=== PATIENT | female | born 1935 | race Caucasian/White ===

== ENCOUNTER → 2017-10-31 08:45 | Outpatient (CLI) | payer MEDICARE, SELFPAY ==
--- NOTE | 2017-10-31 08:55 | BD_ITS ---
STUDY: DUAL ENERGY X-RAY ABSORPTIOMETRY / DXA REASON FOR EXAM: Female, 82 years old. The patient is postmenopausal. Loss of height. TECHNIQUE: Bone Mineral Density (BMD) measurements of lumbar spine and bilateral hips were obtained. COMPARISON: Comparison is made with prior study dated October 27, 2015. FINDINGS: Lumbar Spine (L1-L4): g/cm2 (0.989) / T-score (-1.5) / Z-score (0.3) Findings are suggestive of osteopenia with a moderate fracture risk. Left Femur Total: g/cm2 (0.684) / T-score (-2.6) / Z-score (-0.5) Left Femoral Neck: g/cm2 (0.600) / T-score (-3.2) / Z-score (-1.0) Right Femur Total: g/cm2 (0.736) / T-score (-2.2) / Z-score (-0.1) Right Femoral Neck: g/cm2 (0.739) / T-score (-2.2) / Z-score (0.0) The T-Scores on the most recent prior examination were: Lumbar Spine (L1-L4): There has been worsening of bone density since the previous examination. Left Femur Total: which represents a worsening of 4.3%. Right Femur Total: which represents an improvement of 5.7%. BD/Dexa Bone Density Study IMPRESSION: The patient is considered osteoporotic as outlined below according to World Don Organization (WHO) criteria with a high fracture risk. There has been worsening of bone density since the previous examination. Reference Information: The T-score is the number of standard deviations above or below the standard which is normal for young adults at their peak bone mineral density. The World Health Organization (WHO) interprets the T-scores as follows: Above -1 Normal bone density Between -1 and -2.5 Osteopenia Equal to / or below -2.5 Osteoporosis As a practical clinical guideline, osteopenia may be graded as follows: Mild -1 through -1.5 Moderate -1.6 through -2.0 Severe -2.1 through -2.4 The Z-score is the number of standard deviations above or below age-matched controls. A Z-score of less than -1.5 would be considered abnormal. References: 1. NIH Osteoporosis and Related Bone Diseases http://www.osteo.org 2. International Society for Clinical Densitometry http://www.iscd.org 3. National Osteoporosis Foundation http://www.nof.org Electronically Signed: Fernando Venegas MD at 13:18 EDT Tel [phone], Service support ,
== END ==
PROVIDERS: Family Provider Nurse Practitioner; PCP Nurse Practitioner; Visit Provider Nurse Practitioner
DX: M81.0 Age-related osteoporosis without current pathological fracture (principal)
CPT/HCPCS: 77080

== ENCOUNTER → 2017-12-14 13:52 | Outpatient (CLI) | payer MEDICARE, SELFPAY ==
--- NOTE | 2017-12-14 13:55 | RAD_ITS ---
STUDY: X-RAY - RIGHT SHOULDER REASON FOR EXAM: Shoulder pain for 4 days, no specific injury. TECHNIQUE: 4 view(s) of the shoulder. COMPARISON: None. FINDINGS: There is osteopenia. Normal glenohumeral articulation. Normal acromioclavicular joint. Normal acromion. Normal humeral head and visualized proximal humerus. There is subtle calcific tendinitis. Normal visualized pulmonary apex. RAD/Shoulder min 2 Views IMPRESSION: Subtle calcific tendinitis. Electronically Signed: George Madrid MD at 14:14 EDT Tel , Service support ,
== END ==
PROVIDERS: Family Provider Nurse Practitioner; PCP Nurse Practitioner; Visit Provider Nurse Practitioner Gerontology
DX: M25.511 Pain in right shoulder (principal)
CPT/HCPCS: 73030

== ENCOUNTER → 2018-02-28 12:44 | Outpatient (CLI) | payer MEDICARE, SELFPAY ==
--- NOTE | 2018-02-28 12:46 | BI_ITS ---
MAMMOGRAPHY - BILATERAL SCREENING REASON FOR EXAM: Female, 82 years old. Routine annual screening examination. PERTINENT HISTORY: Non-contributory. TECHNIQUE: Digital bilateral breast jessica (3D mammographic acquisition) in the CC and MLO projections. 2-D mediolateral oblique (MLO) and craniocaudad (CC) views of both breasts were obtained. CAD: Full Field Digital Mammography with Computer Added Detection was performed. COMPARISON: Comparison is made with prior examination dated February 27, 2017 and October 27, 2015. FINDINGS: Breast Composition: The breasts are heterogeneously dense, which may obscure small masses. There are no dominant masses or suspicious calcifications. There are stable small benign-appearing bilateral axillary lymph nodes. No other significant abnormalities are identified. There has been no significant change since the prior study. BI/SCREENING MAMM (CAD), BILAT IMPRESSION: Stable bilateral screening mammogram. Yearly follow-up mammogram recommended. (A) ASSESSMENT CATEGORY: BIRADS Category 2: Benign. A letter regarding these results will be sent to the patient by the facility within 30 days. Approximately 10% of breast cancers are not detected by mammography. A normal mammogram should not delay biopsy of a clinically suspicious abnormality. [id number] Electronically Signed: Fernando Venegas MD at 15:34 EDT Tel [phone], Service support ,
== END ==
PROVIDERS: Family Provider Nurse Practitioner; PCP Nurse Practitioner; Visit Provider Nurse Practitioner
DX: Z12.31 Encounter for screening mammogram for malignant neoplasm of breast (principal)
CPT/HCPCS: 77063; 77067

== ENCOUNTER → 2018-12-27 12:44 | Outpatient (CLI) | payer MEDICARE, SELFPAY ==
--- NOTE | 2018-12-27 12:49 | ECHOD_ITS ---
Reason For Study: BRADYACARDIA Procedure This was a 2D Doppler, Color Flow transthoracic echocardiogram. The study was technically difficult. Exam performed in department. Left Ventricle Normal size and thickness. The estimated ejection fraction is 65 %. Diastolic function is indeterminate. No regional wall motion abnormalities noted. Right Ventricle Normal RV size. Normal systolic function. Atria The left atrium is mildly enlarged. Normal right atrium. No doppler evidence for ASD. Mitral Valve There is no mitral valve stenosis. Trivial mitral valve insufficiency. Tricuspid Valve There is no tricuspid stenosis. Mild tricuspid valve insufficiency. Pulmonary artery systolic pressure is 35 mmHg. Aortic Valve Trisinus/trileaflet aortic valve. Aortic sclerosis, no stenosis. There is no aortic stenosis. No aortic valve insufficiency. Pulmonic Valve There is no pulmonic valvular stenosis. No pulmonic valve insufficiency identified. Great Vessels Normal aortic root. Pericardium/Pleural No pericardial effusion. MMode/2D Measurements & Calculations LVIDd: 4.0 cm IVSd: 0.82 cm LVOT diam: 1.9 cm LVIDs: 2.5 cm LVPWd: 0.86 cm LVOT area: 2.8 cm2 RVDd: 3.6 cm FS: 37.4 % Ao root diam: 3.5 cm LAV(MOD-bp): 39.5 ml LVAd ap4: 26.8 cm2 LAV(MOD-bp) Indexed: 23.0 ml/m2 EDV(MOD-sp4): 81.8 ml LAV(MOD-sp2): 49.6 ml EDV(sp4-el): 86.4 ml LAV(MOD-sp4): 31.3 ml LVAs ap4: 13.5 cm2 ESV(MOD-sp4): 28.3 ml ESV(sp4-el): 27.8 ml EF(MOD-sp4): 65.3 % EF(sp4-el): 67.8 % SV(MOD-sp4): 53.4 ml SV(sp4-el): 58.5 ml LA A4 area: 13.7 cm2 LA dimension(2D): 4.2 cm RA A4 area: 11.9 cm2 Time Measurements MV dec time: 0.48 sec Doppler Measurements & Calculations MV E max flavio: 60.0 cm/sec Lat Peak E' Flavio: 4.1 cm/sec Med Peak E' Flavio: 4.5 cm/sec MV A max flavio: 111.2 cm/sec E/E' lat: 14.5 E/E' med: 13.3 MV E/A: 0.54 MV V2 max: 129.5 cm/sec Ao V2 max: 165.5 cm/sec LV V1 max: 122.7 cm/sec MV max P.7 mmHg Ao max P.0 mmHg LV V1 max P.0 mmHg MV V2 mean: 61.9 cm/sec Ao V2 mean: 108.3 cm/sec LV V1 mean P.4 mmHg MV mean P.0 mmHg Ao mean P.4 mmHg LV V1 mean: 86.5 cm/sec MV V2 VTI: 38.3 cm Ao V2 VTI: 31.6 cm LV V1 VTI: 26.5 cm MVA(VTI): 1.9 cm2 LISBET(I,D): 2.4 cm2 LISBET(V,D): 2.1 cm2 SV(LVOT): 74.5 ml PA V2 max: 83.5 cm/sec TR max flavio: 272.9 cm/sec TR max P.8 mmHg MV P1/2t-pr_phl: 57.2 msec Interpretation Summary The estimated ejection fraction is 65 %. Diastolic function is indeterminate. Mild tricuspid valve insufficiency. Pulmonary artery systolic pressure is 35 mmHg. Aortic sclerosis, no stenosis. Trivial mitral valve insufficiency. Ordering Physician: Beverley Bridges Referring Physician: Beverley Bridges Performed By: Lissy Quinn, FRANCINECS, RVT
== END ==
PROVIDERS: Family Provider Nurse Practitioner; PCP Nurse Practitioner; Referring Provider Nurse Practitioner; Visit Provider Nurse Practitioner
DX: G47.33 Obstructive sleep apnea (adult) (pediatric) (principal); R00.1 Bradycardia, unspecified
CPT/HCPCS: 93225; 93226; 93306

== ENCOUNTER → 2019-04-19 14:15 | Outpatient (CLI) | payer MEDICARE, SELFPAY ==
--- NOTE | 2019-04-19 14:19 | BI_ITS ---
MAMMOGRAPHY - BILATERAL SCREENING REASON FOR EXAM: Female, 83 years old. Routine annual screening examination. PERTINENT HISTORY: Non-contributory. TECHNIQUE: Digital bilateral breast xiomara (3D mammographic acquisition) in the CC and MLO projections. 2-D mediolateral oblique (MLO) and craniocaudad (CC) views of both breasts were obtained. CAD: Full Field Digital Mammography with Computer Added Detection was performed. COMPARISON: Comparison is made with prior examination dated February 28, 2018 and February 27, 2017. FINDINGS: Breast Composition: The breasts are heterogeneously dense, which may obscure small masses. There are no dominant masses or suspicious calcifications. No other significant abnormalities are identified. There has been no significant change since the prior study. BI/SCREEN MAMM (CAD) W/XIOMARA BILAT IMPRESSION: Stable bilateral screening mammogram. Yearly follow-up mammogram recommended. (A) ASSESSMENT CATEGORY: BIRADS Category 1: Negative. A letter regarding these results will be sent to the patient by the facility within 30 days. Approximately 10% of breast cancers are not detected by mammography. A normal mammogram should not delay biopsy of a clinically suspicious abnormality. [id number] Electronically Signed: Fernando Venegas, at 15:45 EST , Service support ,
== END ==
PROVIDERS: Family Provider Nurse Practitioner; PCP Nurse Practitioner; Referring Provider Nurse Practitioner; Visit Provider Nurse Practitioner
DX: Z12.31 Encounter for screening mammogram for malignant neoplasm of breast (principal)
CPT/HCPCS: 77063; 77067

== ENCOUNTER → 2019-11-12 09:45 | Outpatient (CLI) | payer MEDICARE, SELFPAY ==
--- NOTE | 2019-11-12 09:58 | BD_ITS ---
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 COMPARISON: Comparison is made with prior examination dated October 31, 2017. FINDINGS: Lumbar Spine (L1-L4): g/cm2 (1.041) / T-score (-1.3) / Z-score (0.6) Findings are suggestive of osteopenia with a low fracture risk. Left Femur Total: g/cm2 (0.692) / T-score (-2.5) / Z-score (-0.3) Left Femoral Neck: g/cm2 (0.599) / T-score (-3.2) / Z-score (-0.9) Right Femur Total: g/cm2 (0.629) / T-score (-3.0) / Z-score (-0.8) Right Femoral Neck: g/cm2 (0.6-2) / T-score (-3.0) / Z-score (-0.7) The T-Scores on the most recent prior examination were: Lumbar Spine (L1-L4): There has been improvement of bone density since the previous examination. Left Femur Total: which represents an improvement of 1.2%. Right Femur Total: which represents a worsening of 14.5%. BD/Dexa Bone Density Study IMPRESSION: The patient is considered osteoporotic as outlined below according to World Don Organization (WHO) criteria with a high fracture risk. There has been worsening of bone density since the previous examination. Reference Information: The T-score is the number of standard deviations above or below the standard which is normal for young adults at their peak bone mineral density. The World Health Organization (WHO) interprets the T-scores as follows: Above -1 Normal bone density Between -1 and -2.5 Osteopenia Equal to / or below -2.5 Osteoporosis As a practical clinical guideline, osteopenia may be graded as follows: Mild -1 through -1.5 Moderate -1.6 through -2.0 Severe -2.1 through -2.4 The Z-score is the number of standard deviations above or below age-matched controls. A Z-score of less than -1.5 would be considered abnormal. References: 1. NIH Osteoporosis and Related Bone Diseases http://www.osteo.org 2. International Society for Clinical Densitometry http://www.iscd.org 3. National Osteoporosis Foundation http://www.nof.org Electronically Signed: Fernando Vneegas, at 13:14 EDT , Service support ,
== END ==
PROVIDERS: PCP Nurse Practitioner; Referring Provider Nurse Practitioner; Visit Provider Nurse Practitioner
DX: M81.0 Age-related osteoporosis without current pathological fracture (principal)
CPT/HCPCS: 77080

== ENCOUNTER → 2020-04-29 15:34 | Outpatient (CLI) | payer MEDICARE, SELFPAY ==
--- NOTE | 2020-04-29 15:36 | BI_ITS ---
MAMMOGRAPHY - BILATERAL SCREENING REASON FOR EXAM: Female, 84 years old. Routine annual screening examination. PERTINENT HISTORY: Non-contributory. TECHNIQUE: Digital bilateral breast xiomara (3D mammographic acquisition) in the CC and MLO projections. 2-D mediolateral oblique (MLO) and craniocaudad (CC) views of both breasts were obtained. CAD: Full Field Digital Mammography with Computer Added Detection was performed. COMPARISON: Comparison is made with prior study dated 04/19/2019 and 02/28/2018. FINDINGS: Breast Composition: The breasts are heterogeneously dense, which may obscure small masses. There are no dominant masses or suspicious calcifications. Stable small benign-appearing bilateral axillary lymph nodes. No other significant abnormalities are identified. There has been no significant change since the prior study. BI/SCREEN MAMM (CAD) W/XIOMARA BILAT IMPRESSION: Stable bilateral screening mammogram. Yearly follow-up mammogram recommended. (A) ASSESSMENT CATEGORY: BIRADS Category 2: Benign. A letter regarding these results will be sent to the patient by the facility within 30 days. Approximately 10% of breast cancers are not detected by mammography. A normal mammogram should not delay biopsy of a clinically suspicious abnormality. [id number] Electronically Signed: Fernando Venegas, at 8:01 EST , Service support ,
== END ==
PROVIDERS: PCP Nurse Practitioner; Visit Provider Nurse Practitioner
DX: Z12.31 Encounter for screening mammogram for malignant neoplasm of breast (principal)
CPT/HCPCS: 77063; 77067

== ENCOUNTER 2020-07-03 09:06 | Outpatient (RCR) | payer MEDICARE, SELFPAY | END 2020-11-17 23:59 | LOC: IMMUN 09:06 | PROVIDERS: PCP Nurse Practitioner; Visit Provider Family Medicine | DX: Z23 Encounter for immunization (principal) | CPT/HCPCS: 0011A; 0012A; 91301 ==

== ENCOUNTER 2021-06-22 08:32 | Outpatient (CLI) | payer MEDICARE, SELFPAY ==
--- NOTE | 2021-06-22 08:39 | BI_ITS ---
MAMMOGRAPHY - BILATERAL SCREENING REASON FOR EXAM: Female, 85 years old. Routine annual screening examination. PERTINENT HISTORY: Non-contributory. TECHNIQUE: Digital bilateral breast xiomara (3D mammographic acquisition) in the CC and MLO projections. 2-D mediolateral oblique (MLO) and craniocaudad (CC) views of both breasts were obtained. CAD: Full Field Digital Mammography with Computer Added Detection was performed. COMPARISON: Comparison is made with prior study dated 04/29/2020 and 04/19/2019. FINDINGS: Breast Composition: The breasts are heterogeneously dense, which may obscure small masses. There are no dominant masses or suspicious calcifications. Stable small benign-appearing bilateral axillary lymph nodes. No other significant abnormalities are identified. There has been no significant change since the prior study. BI/SCRN MAMM (CAD)W/XIOMARA BILAT IMPRESSION: Stable bilateral screening mammogram. Yearly follow-up mammogram recommended. (A) ASSESSMENT CATEGORY: BIRADS Category 2: Benign. A letter regarding these results will be sent to the patient by the facility within 30 days. Approximately 10% of breast cancers are not detected by mammography. A normal mammogram should not delay biopsy of a clinically suspicious abnormality. [id number] Electronically Signed: Fernando Venegas MD at 9:54 EST , Service support ,
== END 2021-06-22 23:59 | disposition short-term general hospital (02) ==
PROVIDERS: PCP Nurse Practitioner; Visit Provider Nurse Practitioner
DX: Z12.31 Encounter for screening mammogram for malignant neoplasm of breast (principal)
CPT/HCPCS: 77063; 77067

== ENCOUNTER → 2021-12-23 | Outpatient (CLI) | payer MEDICARE, SELFPAY ==
--- NOTE | 2021-12-23 09:30 | BD_ITS ---
STUDY: DUAL ENERGY X-RAY ABSORPTIOMETRY / DXA REASON FOR EXAM: Female, 86 years old. 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 Patient is postmenopausal. TECHNIQUE: Bone Mineral Density (BMD) measurements of lumbar spine and bilateral hips were obtained. COMPARISON: Comparison is made with prior examination dated 11/12/2019. FINDINGS: Lumbar Spine (L1-L4): g/cm2 (0.859) / T-score (-1.7) / Z-score (1.2) Findings are suggestive of osteopenia with a moderate fracture risk. Left Femur Total: g/cm2 (0.551) / T-score (-3.2) / Z-score (-0.9) Left Femoral Neck: g/cm2 (0.477) / T-score (-3.4) / Z-score (-0.8) Right Femur Total: g/cm2 (0.551) / T-score (-3.2) / Z-score (-0.9) Right Femoral Neck: g/cm2 (0.477) / T-score (-3.4) / Z-score (-0.8) The T-Scores on the most recent prior examination were: Lumbar Spine (L1-L4): There has been worsening of bone density since the previous examination. Left Femur Total: which represents a worsening of 13.1%. Right Femur Total: which represents a worsening of 13.1%. BD/Dexa Bone Density Study IMPRESSION: The patient is considered osteoporotic as outlined below according to World Don Organization (WHO) criteria with a high fracture risk. There has been worsening of bone density since the previous examination. Reference Information: The T-score is the number of standard deviations above or below the standard which is normal for young adults at their peak bone mineral density. The World Health Organization (WHO) interprets the T-scores as follows: Above -1 Normal bone density Between -1 and -2.5 Osteopenia Equal to / or below -2.5 Osteoporosis As a practical clinical guideline, osteopenia may be graded as follows: Mild -1 through -1.5 Moderate -1.6 through -2.0 Severe -2.1 through -2.4 The Z-score is the number of standard deviations above or below age-matched controls. A Z-score of less than -1.5 would be considered abnormal. References: 1. NIH Osteoporosis and Related Bone Diseases www osteo.org 2. International Society for Clinical Densitometry www iscd.org 3. National Osteoporosis Foundation www nof.org Electronically Signed: Fernando Venegas MD at 10:35 EDT ,
== END | disposition home or self-care (01) ==
PROVIDERS: PCP Nurse Practitioner Family; Visit Provider Nurse Practitioner Family
DX: M81.0 Age-related osteoporosis without current pathological fracture (principal); Z78.0 Asymptomatic menopausal state
CPT/HCPCS: 77080

== ENCOUNTER → 2022-01-20 | Outpatient (CLI) | payer MEDICARE, SELFPAY | END | disposition home or self-care (01) | PROVIDERS: PCP Nurse Practitioner Family; Visit Provider Nurse Practitioner Family | DX: R00.1 Bradycardia, unspecified (principal); R42 Dizziness and giddiness | CPT/HCPCS: 93225; 93226 ==

== ENCOUNTER 2022-01-24 14:03 | Observation (INO) | payer MEDICARE, SELFPAY ==
[2022-01-24] VITALS (11 sets, daily range): BP systolic 131–203; BP diastolic 71–100; PULSE 54–73; RESP 12–17; TEMP 36.3–36.7; O2SAT 93–98; BMI 23.5; BMI 23.4; BMI 23.1
--- NOTE | 2022-01-24 14:31 | EKG12_ITS ---
Test Reason : dizziness Blood Pressure : / mmHG Vent. Rate : 055 BPM Atrial Rate : 055 BPM P-R Int : 146 ms QRS Dur : 082 ms QT Int : 454 ms P-R-T Axes : 041 -35 010 degrees QTc Int : 434 ms Sinus bradycardia Left axis deviation Minimal voltage criteria for LVH, may be normal variant ( R in aVL ) Possible Anterior infarct , age undetermined Abnormal ECG Confirmed by FRANCHESKA DE DIOS, ESTEBAN ([id number]), editor city MATHEW VU ([id number]) on 01/26/2022 9:42:40 AM Referred By: Lashae Confirmed By:ESTEBAN PRITCHARD MD
[2022-01-24 14:53] LABS: Absolute Lymphocyte Count 0.65 X10^3/uL (0.83-4.51); Absolute Neutrophil Count 9.2 X10^3/uL (2.0-7.7); Basophil# 0.04 X10^3/uL; Basophil% 0.4 % (0-1); Eosinophil# 0.02 X10^3/uL; Eosinophils% 0.2 % (0-5); Hematocrit 47.2 % (37-47); Hemoglobin 15.7 g/dL (12.0-15.0); Lymphocyte # 0.65 X10^3/ul (0.83-4.51); Lymphocyte % 6.3 % (19-41); Mean Corp Hgb Conc 33.3 g/dL (32-36); Mean Corpuscular Hgb 31.4 pg (27.0-32.0); Mean Corpuscular Volume 94.4 fL (81-99); Mean Platelet Vol. 10.5 fl (6.2-12.0); Monocyte# 0.42 X10^3/uL; Monocyte% 4.1 % (0-10); NRBC Flagged by Analyzer 0 % (0-5); Neutrophil # 9.16 X10^3/uL (2.7-7.7); Neutrophil % 88.7 % (47-70); Platelet Count 240 K/mm3 (150-450); RBC Distribution Width CV 14.6 % (11.6-14.6); RBC Distribution Width SD 50.9 fl (35.1-43.9); White Blood Count 10.3 K/mm3 (4.4-11.0)
[2022-01-24 15:02] LABS: Anion Gap 8 (5-15); BUN 13 mg/dL (7-18); BUN/Creat Ratio 13.3 RATIO (10-20); Calcium,Total 9.8 mg/dL (8.5-10.1); Chloride 103 mmol/L (98-107); Creatinine, Serum 0.98 mg/dL (0.55-1.02); EST Glomerular Filtration Rate 57 mL/min (>60); Est Glom Filt Rate - Afr Amer 69 mL/min (>60); Estimated Creatinine Clearance 36.24 ml/min; Glucose 131 mg/dL (74-106); Sodium Level 139 mmol/L (136-145)
--- NOTE | 2022-01-24 15:09 | CT_ITS ---
STUDY: CT HEAD STROKE PROTOCOL W/O CONTRAST INJECTION REASON FOR EXAM: Female, 86 years old. Neuro deficit, acute, stroke suspected RADIATION DOSAGE (If Supplied By Facility): CTDIvol = ( ) mGy, DLP = ( ) mGycm TECHNIQUE: Transaxial CT imaging of the brain was performed without administration of intravenous contrast material. Individualized dose optimization techniques were used for this CT. COMPARISON: No relevant priors. FINDINGS: Normal soft tissue structures. Normal calvarium. There is mild cerebral atrophy with widening of the extra-axial spaces and ventricular dilatation. There are minimal areas of decreased attenuation within the white matter tracts of the supratentorial brain, consistent with microvascular disease changes. Normal basal ganglia and thalami. Normal brainstem. Normal cerebellum. There is no intracranial hemorrhage. There are no findings of an acute ischemic infarction. Normal visualized paranasal sinuses. ASPECT score: 10 CT/STROKE Brain/Head without Cont IMPRESSION: Chronic involutional changes of the brain. N.B. : The above Results were Read Back by Roman Zapata MD to Dr. Lashae MD, and understanding confirmed on 01/24/2022 15:39:11 (ET). Electronically Signed: Roman Zapata MD at 15:40 EDT ,
--- NOTE | 2022-01-24 15:10 | EX.ED.DYSGE1 ---
HPI History of Present Illness Chief Complaint: Dizziness Narrative Narrative: Episodes of dizziness that feel like spinning, for 2 or 3 weeks. This is her fourth episode, it occurred today around 4 hours ago, she noticed it after she got up from a sitting position to go to another room in her house. She felt spinning, nauseated, vomited, and she felt like her eyes were bugging out and her vision was changing. Now that she is sitting here she is asymptomatic and her vision is back to normal. She had no visual field loss. She had no headache or acute confusion. No focal neurologic symptoms in her periphery. No recent head injury or fall. No history of vertigo that she knows of. No recent illness. [facility] Medical History (Updated 01/24/22 @ 17:[address] Jeremy Bhardwaj MD) Dementia GERD (gastroesophageal reflux disease) Hyperlipidemia Hypothyroid No acute medical problems Osteoporosis Home Medications alendronate 70 mg tablet 70 mg PO QWEEK 01/24/22 [History Last Taken Unknown] aspirin 81 mg chewable tablet 81 mg PO DAILY 01/24/22 [History Last Taken Unknown] calcium carbonate 600 mg-vitamin D3 5 mcg (200 unit) tablet 1 tab PO BID 01/24/22 [History Last Taken Unknown] cholecalciferol (vitamin D3) 50 mcg (2,000 unit) capsule (Vitamin D3) 100 mcg PO DAILY 01/24/22 [History Last Taken Unknown] donepezil 5 mg tablet 5 mg PO QHS 01/24/22 [History Last Taken Unknown] levothyroxine 88 mcg tablet 88 mcg PO DAILY 01/24/22 [History Last Taken Unknown] omeprazole 20 mg capsule,delayed release 20 mg PO DAILY 01/24/22 [History Last Taken Unknown] simvastatin 40 mg tablet 40 mg PO QHS 01/24/22 [History Last Taken Unknown] Allergy/AdvReac Type Severity Reaction Status Date / Time Penicillins Allergy Hives Verified 01/24/22 15:10 ibuprofen AdvReac Other Verified 01/24/22 15:13 Social History (Updated 01/24/22 @ 17:[address] Jeremy Bhardwaj MD) Smoking Status: Never smoker additional social history: Lives with , currently in process of downsizing/moving to independent living with him. Ambulates independently at baseline. ROS ROS ED Constitutional Constitutional ED: Denies chills or fever(s) Eyes Eyes: Reports change in vision; Denies diplopia ENT ENT ED: Reports as per HPI, vertigo and other Details: Chronically hard of hearing ; Denies ear pain, rhinorrhea, sore throat or tinnitus Cardiovascular Cardiovascular: Denies chest pain, lightheadedness or palpitations Respiratory/Chest Respiratory/Chest: Denies cough or dyspnea Gastrointestinal Gastrointestinal: Reports nausea and vomiting; Denies abdominal pain or diarrhea Genitourinary Genitourinary ED: Denies dysuria or hematuria Musculoskeletal Musculoskeletal: Denies back pain or neck pain Integumentary Denies abscess or rash Neurologic Neurologic: Reports other Details: Confusion, at baseline. ; Denies headache(s), paresthesias or weakness Psychiatric Psychiatric: Denies anxiety or suicidal thoughts EXAM Physical Exam Const Vital Signs: 01/24/22 14:03 01/24/22 14:11 01/24/22 15:05 Temperature 97.4 F L 97.7 F L Temperature Source Temporal Oral Pulse Rate 54 L 54 L Respiratory Rate 16 15 Respiratory Effort Normal Non-Labored Respiratory Pattern Normal Blood Pressure 169/71 H 203/91 H Blood Pressure Mean 103 128 Pulse Ox 98 95 Oxygen Delivery Method Room Air Room Air 01/24/22 15:44 01/24/22 16:08 01/24/22 16:48 Temperature Temperature Source Pulse Rate 56 L 60 Respiratory Rate 13 17 Respiratory Effort Respiratory Pattern Blood Pressure 188/100 H 181/79 H Blood Pressure Mean 129 113 Pulse Ox 93 96 96 Oxygen Delivery Method Room Air Room Air Room Air 01/24/22 16:57 01/24/22 17:17 Temperature Temperature Source Pulse Rate 58 L 68 Respiratory Rate 12 17 Respiratory Effort Respiratory Pattern Blood Pressure 178/72 H 140/77 H Blood Pressure Mean 107 98 Pulse Ox 96 96 Oxygen Delivery Method Room Air Room Air Positive well nourished and well developed General Appearance ED: well developed and NAD HEENT Reports TM's clear and moist mucous membranes normocephalic and atraumatic Tympanic Membrane ED: Yes TM's clear Eyes PERRL and EOMs intact bilaterally Eyes Narrative: Horizontal nystagmus, fast component mostly to the right, including on [place]-Hallpike which reproduces no vertiginous symptoms. No vertical or rotatory nystagmus but she does have horizontal nystagmus when she looks up. Neck full ROM and supple Chest Wall inspection of chest normal and palpation of chest normal Resp normal respiratory effort and clear to auscultation bilaterally Cardio regular rate, regular rhythm and no murmurs GI non-tender and non-distended Auscultation: normoactive bowel sounds Palpation: soft Back/Spine no CVA tenderness General Back: other FROM Extremity normal to inspection General Extremety ED: Negative for edema, pulses abnormal or tenderness General Extremity: Negative for edema or pulses abnormal Neuro CN's II-XII intact bilaterally and no sensory deficits noted Neuro Narrative: Disoriented to time, at baseline per family. Normal [id number]-pwek and qjlz-zj-yxix bilaterally. Negative Ernesto-Hallpike see HEENT exam. NIHSS 2 only because she does not know the date or her age. Otherwise negative nonfocal neurologic exam. Sensorium / Orientation: awake and alert Motor Exam: strength 5/5 throughout Psych mental status grossly normal Skin no rashes or lesions noted and no wounds MDM MDM MDM Narrative Medical decision making narrative: Initial blood pressure extremely high around 200. For this reason she was given hydralazine 10 mg. This brought her down to 169/71 and later 140/77. At rest she has no vertigo symptoms at this time, and she did not develop any while resting here. She is on aspirin 81 mg, she has had several episodes of this, unknown if it is due to blood pressure, or if that is occurring as a result of her symptoms which may or may not be peripheral in nature. History and exam are not sensitive enough at this time to rule this out. Given her age and blood pressure elevation I think she should be admitted for further work-up to evaluate for the possibility of central etiologies. Lab Data Attestation: I reviewed the patient's lab results. Labs: Laboratory Results - last 24 hr 01/24/22 01/24/22 01/24/22 14:33 14:33 16:43 WBC 10.3 RBC 5.00 Hgb 15.7 H Hct 47.2 H MCV 94.4 MCH 31.4 MCHC 33.3 RDW Std Deviation 50.9 H RDW Coeff of [place] 14.6 Plt Count 240 MPV 10.5 Immature Gran % (Auto) 0.300 Neut % (Auto) 88.7 H Lymph % (Auto) 6.3 L [place] % (Auto) 4.1 Eos % (Auto) 0.2 Baso % (Auto) 0.4 Absolute Neuts (auto) 9.2 H Absolute Lymphs (auto) 0.65 L Nucleated RBC % 0 Sodium 139 Potassium 4.0 Chloride 103 Carbon Dioxide 28.0 Anion Gap 8 BUN 13 Creatinine 0.98 Estim Creat Clear Calc 36.24 Est GFR (MDRD) Af Amer 69 Est GFR (MDRD) Non-Af 57 L BUN/Creatinine Ratio 13.3 Glucose 131 H Calcium 9.8 Urine Color Straw Urine Clarity Clear Urine pH 7.0 Ur Specific [place] 1.010 Urine Protein Negative Urine Glucose (UA) Normal Urine Ketones 15 H Urine Occult Blood Negative Urine Nitrite Negative Urine Bilirubin Negative Urine Urobilinogen Normal Ur Leukocyte Esterase 500 H Radiography Diagnostic Testing: Clinical Impression(s) from Imaging Studies Brain CT 01/24/22 15:09 IMPRESSION: Chronic involutional changes of the brain. N.B. : The above Results were Read Back by Roman Zapata MD to Dr. Lashae MD, and understanding confirmed on 01/24/2022 15:39:11 (ET). Electronically Signed: Roman Zapata MD at 15:40 EDT Reading Location ID and State: [facility] / [place] , Service support , ADDENDUM: 01/24/22 1547 IMPRESSION: Chronic involutional changes of the brain. N.B. : The above Results were Read Back by Roman Zapata MD to Dr. Lashae MD, and understanding confirmed on 01/24/2022 15:39:11 (ET). Electronically Signed: Roman Zapata MD at 15:40 EDT , Chest X-Ray 01/24/22 15:16 IMPRESSION: No acute process Electronically Signed: Roman Zapata MD at 15:28 EDT , Rhythm Strip Rhythm Strip: Sinus Rhythm Rate: 55 Ectopy: None EKG Initial EKG: Attestation: I personally reviewed and interpreted this EKG as follows: Interpretation: Sinus Rhythm, No Acute Injury Pattern and LAFB Prior: No Prior Discharge Plan Dx/Rx/DC Orders Clinical Impression: Intermittent vertigo, Accelerated hypertension Disposition Disposition: Acute Care Hospital [facility]
--- NOTE | 2022-01-24 15:16 | RAD_ITS ---
STUDY: X-RAY CHEST REASON FOR EXAM: Female, 86 years old. Neuro deficit, acute, stroke suspected TECHNIQUE: Single AP portable view of the chest. COMPARISON: None. FINDINGS: The lungs are clear and expanded. There is no demonstrated pleural abnormality. Normal size heart. There are calcified mediastinal lymph nodes. Normal visualized pulmonary arteries. There is atherosclerotic calcification of the aortic arch with tortuosity. There are diffuse degenerative changes of the visualized thoracic spine. Normal visualized ribs, clavicles, and shoulders. There is no demonstrated abnormality of the visualized soft tissue structures of the upper abdomen. RAD/Chest 1 View IMPRESSION: No acute process Electronically Signed: Roman Zapata MD at 15:28 EDT ,
[2022-01-24] MEDS: hydrALAZINE 20 MG/ML Vial 10 MG IV (16:50)
[2022-01-24 16:53] LABS: Mucous, Urine 0 SEEN /hpf (<or=2+); Red Blood Cells-Urine 0 SEEN /hpf (0-5)
[2022-01-24 17:04] LABS: Color, Urine Straw (Yellow); Glucose, Dipstick Normal (Normal); Ketone-Dipstick 15 mg/dl (Negative); Leukocyte Esterase-Dipstick 500 /ul (Negative); Nitrite-Dipstick Negative (Negative); Occult Blood-Urine Negative /ul (Negative); Protein-Dipstick Negative (Negative); Urine Bilirubin Dipstick Negative (Negative); Urine Clarity Clear (Clear); Urine Urobilinogen Normal (Normal)
--- NOTE | 2022-01-24 17:48 | NURSING ---
PCU OBS KARLEY VERTIGO, ACCELERATED HTN
--- NOTE | 2022-01-24 17:49 | MRI_ITS ---
EXAM: MR HEAD WITHOUT INTRAVENOUS CONTRAST CLINICAL INDICATION: dizziness TECHNIQUE: Multiplanar and multisequence MR images of the brain were obtained without intravenous contrast. This report was created using [employer] report generation technology. COMPARISON: Ct done earlier. FINDINGS: BRAIN AND EXTRA-AXIAL SPACES: Unremarkable. No intra- or extra-axial hemorrhage. No evidence of acute infarct. No intracranial mass or mass effect. There is preservation of the jackson/white matter interface. Posterior fossa structures are unremarkable. Ventricles are appropriate for age. No hydrocephalus. Basal cisterns are patent. SELLA: Unremarkable. Normal sella turcica, pituitary gland, infundibular stalk, optic chiasm and hypothalamus. AUDITORY SYSTEM: Unremarkable. The internal auditory canals are patent. BONES/JOINTS: Unremarkable. No discrete lytic or blastic abnormalities. SINUSES: Unremarkable as visualized. Clear. MASTOID AIR CELLS: Unremarkable as visualized. Clear. ORBITS: Unremarkable as visualized. Both globes, extraocular muscles, optic nerves and retrobulbar fat appear unremarkable. VASCULATURE: Unremarkable as visualized. Normal flow voids in the major intracranial circulation. MRI/Brain without Contrast IMPRESSION: Negative MRI brain without intravenous contrast. Electronically Signed: Rickie Joshi MD at 19:38 EDT ,
--- NOTE | 2022-01-24 17:49 | CT_ITS ---
We are attempting to reach an attending provider to discuss findings. An addendum with communication details will be sent when the communication is complete. EXAM: CT ANGIOGRAPHY HEAD AND NECK WITH INTRAVENOUS CONTRAST CLINICAL INDICATION: Neuro deficit, acute, stroke suspectedTechnologist Notes VERTIGO, HTN TECHNIQUE: [place]/head and neck CT angiography protocol performed with intravenous contrast. This CT exam was performed using one or more of the following dose reduction techniques: automated exposure control, adjustment of the mA and/or kV according to patient size, and/or use of iterative reconstruction technique. This report was created using [employer] report generation technology. MIP reconstructed images were created and reviewed. CONTRAST: IV 100mL Isovue-370 RADIATION DOSE: CTDIvol = 19.48 mGy, DLP = 688.92 mGy-cm COMPARISON: None. FINDINGS: HEAD: RIGHT ANTERIOR CEREBRAL ARTERY: Unremarkable. No significant stenosis at the visualized segments. Anterior communicating artery is present. No aneurysm. RIGHT MIDDLE CEREBRAL ARTERY: Unremarkable. No significant stenosis at the visualized segments. No aneurysm. RIGHT POSTERIOR CEREBRAL ARTERY: Unremarkable. No occlusion or significant stenosis. No aneurysm. RIGHT INTRACRANIAL INTERNAL CAROTID ARTERY: Unremarkable. No significant stenosis. No dissection or occlusion. RIGHT INTRACRANIAL VERTEBRAL ARTERY: Unremarkable. No significant stenosis. No dissection or occlusion. LEFT ANTERIOR CEREBRAL ARTERY: Unremarkable. No significant stenosis at the visualized segments. No aneurysm. LEFT MIDDLE CEREBRAL ARTERY: Unremarkable. No significant stenosis at the visualized segments. No aneurysm. LEFT POSTERIOR CEREBRAL ARTERY: Unremarkable. No occlusion or significant stenosis. No aneurysm. LEFT INTRACRANIAL INTERNAL CAROTID ARTERY: Unremarkable. No significant stenosis. No dissection or occlusion. LEFT INTRACRANIAL VERTEBRAL ARTERY: Unremarkable. No significant stenosis. No dissection or occlusion. BASILAR ARTERY: Unremarkable. No significant stenosis. No aneurysm. OTHER VASCULATURE: There are no acute findings of the right and left internal carotid artery. ALL ABOVE CRITERIA BY NASCET. There is calcified plaque formation of the right cavernous carotid artery, with a mild stenosis (less than 50%). ALL ABOVE CRITERIA BY NASCET. NECK: RIGHT COMMON CAROTID ARTERY: Unremarkable. No significant stenosis. No dissection or occlusion. RIGHT EXTRACRANIAL INTERNAL CAROTID ARTERY: Unremarkable. No significant stenosis. No dissection or occlusion. RIGHT EXTERNAL CAROTID ARTERY: Unremarkable. No occlusion. RIGHT EXTRACRANIAL VERTEBRAL ARTERY: Unremarkable. No significant stenosis. No dissection or occlusion. LEFT COMMON CAROTID ARTERY: Unremarkable. No significant stenosis. No dissection or occlusion. LEFT EXTRACRANIAL INTERNAL CAROTID ARTERY: Unremarkable. No significant stenosis. No dissection or occlusion. LEFT EXTERNAL CAROTID ARTERY: Unremarkable. No occlusion. LEFT EXTRACRANIAL VERTEBRAL ARTERY: Unremarkable. No significant stenosis. No dissection or occlusion. GREAT VESSELS OF AORTIC ARCH: There is calcified plaque formation of the left cavernous carotid artery, with a mild stenosis (less than 50%). ALL ABOVE CRITERIA BY NASCET. LUNG APICES: Unremarkable as visualized. HEAD and NECK: BONES/JOINTS: There are degenerative findings of the cervical spine. No discrete lytic or blastic abnormalities. SOFT TISSUES: Unremarkable. CAROTID STENOSIS REFERENCE USING NASCET CRITERIA: % ICA stenosis = (1 - narrowest ICA diameter/diameter of distal cervical ICA) x 100. Mild - <50% stenosis. Moderate - 50-69% stenosis. Severe - 70-94% stenosis. Near occlusion - 95-99% stenosis. Occluded - 100% stenosis. CT/STROKE CTA Head AND Neck W/Con IMPRESSION: 1. There are no acute findings of the right and left internal carotid artery. ALL ABOVE CRITERIA BY NASCET. 2. There is calcified plaque formation of the right cavernous carotid artery, with a mild stenosis (less than 50%). ALL ABOVE CRITERIA BY NASCET. 3. There is calcified plaque formation of the left cavernous carotid artery, with a mild stenosis (less than 50%). ALL ABOVE CRITERIA BY NASCET. Electronically Signed: Rickie Joshi MD at 18:29 EDT ,
--- NOTE | 2022-01-24 18:01 | PCM.HP.STD ---
HPI - General General Date of Admission: 01/24/22 Date of Service: 01/24/22 Chief Complaint: Dizziness HPI Narrative LEVY LEWIS, is a 86 F who presented to the emergency department was prehospital on 01/24/2022 with a chief complaint of dizziness. The patient has been suffering from this over the past 3 months and did follow-up with her primary care physician who ordered a Holter monitor which they turned in today. It sounds like this was fairly unpredictable and last for a fairly short period of time however the patient is overall poor historian. She is had 1 fall associated with this but no injury pertaining to the fall. Her episode today started about 4 hours ago when she noticed it after getting up from a sitting position to go to another room in the house. She reported that it felt like the world was spinning and she suffered from associated nausea and had an episode of vomiting. She reported that she felt like her eyes were bugging out and that her vision was blurred for a period of time. At the time of my evaluation her vertigo and visual changes are resolved. She had no visual field deficit. She denies any headaches or confusion. Denies any tingling numbness or weakness. No change in speech or swallowing. As noted she is currently asymptomatic. She was feeling well prior to the episode of vertigo 4 hours previously. Vital signs on presentation emergency department showed a temperature of 97.4, heart rate 54-68, blood pressure 203/91 and down to 140/77 with 10 mg of IV hydralazine x1 dose. Her respiratory rate is 15 and oxygen saturations are 95 to 98% on room air. Her CT C is unremarkable other than a hemoglobin of 15.7. I have no previous hemoglobin to compare. She does have a left shift with an 88.7% neutrophil count. Her BMP is overall unimpressive. Her glucose was 131 however this was nonfat fasting. A troponin was pending on admission. A UA was obtained and shows 500 leuk esterase with no nitrite however differential was pending on admission. Her EKG showed sinus bradycardia with heart rates in the 50s, intervals are normal, few PACs were present, no ST-T wave changes consistent with ischemia. Her chest x-ray showed no acute process. In the emergency department other than imaging obtained she was treated with IV hydralazine for her elevated blood pressure. The patient does not take NSAIDs at baseline. [facility] Medical History Dementia GERD (gastroesophageal reflux disease) Hyperlipidemia Hypothyroid No acute medical problems Osteoporosis Home Medications alendronate 70 mg tablet 70 mg PO QWEEK 01/24/22 [History Last Taken Unknown] aspirin 81 mg chewable tablet 81 mg PO DAILY 01/24/22 [History Last Taken Unknown] calcium carbonate 600 mg-vitamin D3 5 mcg (200 unit) tablet 1 tab PO BID 01/24/22 [History Last Taken Unknown] cholecalciferol (vitamin D3) 50 mcg (2,000 unit) capsule (Vitamin D3) 100 mcg PO DAILY 01/24/22 [History Last Taken Unknown] donepezil 5 mg tablet 5 mg PO QHS 01/24/22 [History Last Taken Unknown] levothyroxine 88 mcg tablet 88 mcg PO DAILY 01/24/22 [History Last Taken Unknown] omeprazole 20 mg capsule,delayed release 20 mg PO DAILY 01/24/22 [History Last Taken Unknown] simvastatin 40 mg tablet 40 mg PO QHS 01/24/22 [History Last Taken Unknown] Allergy/AdvReac Type Severity Reaction Status Date / Time Penicillins Allergy Hives Verified 01/24/22 15:10 ibuprofen AdvReac Other Verified 01/24/22 15:13 Family History (Updated 01/24/22 @ 18:[address] Gayathri Christiansen DO) Other Heart disease Hypertension Surgical History no surgical history no surgical history Social History (Updated 01/24/22 @ 18:[address] Gayathri Christiansen DO) household members: spouse Smoking Status: Never smoker alcohol intake: never substance use type: does not use additional social history: Lives with , currently in process of downsizing/moving to independent living with him. Ambulates independently at baseline. ROS Constitutional Constitutional: Denies anorexia, change in weight, chills, fatigue, fever(s), malaise, night sweats, weakness or other Eyes Eyes: Reports blurry vision and change in vision; Denies change in eye color, discharge from eye(s), double vision, erythema, eye pain, loss of vision or other ENT HEENT: Denies abnormal hearing, dysphagia, ear pain, epistaxis, headache(s), hearing loss, nasal congestion, nasal discharge, post nasal drip, sinus pressure, sore throat or other Cardiovascular Cardiovascular: Denies chest pain, claudication, dyspnea on exertion, edema, lightheadedness, orthopnea, palpitations, paroxysmal nocturnal dyspnea, rapid heart rate, syncope or other Respiratory/Chest Respiratory/Chest: Denies cough, dyspnea, excessive phlegm production, hemoptysis, productive cough, shortness of breath at rest, shortness of breath with exertion, wheezing or other Gastrointestinal Gastrointestinal: Reports nausea and vomiting; Denies abdominal pain, coffee ground emesis, constipation, diarrhea, dyspepsia, hematemesis, hematochezia, loose stools, melena or other Genitourinary Genitourinary: Reports urinary frequency and urinary incontinence; Denies burning urination, difficulty urinating, dysuria, hematuria, nocturia, urinary hesitancy, urinary urgency or other Musculoskeletal Musculoskeletal: Denies arthralgias, back pain, joint pain, joint stiffness, joint swelling, myalgias, neck pain or other Neurologic Neurologic: Reports disequilibrium and dizziness; Denies abnormal gait, abnormal speech, confusion, focal weakness, headache(s), numbness, paresthesias, seizure-like activity, seizures, syncope, tingling, tremor(s) or other Psychiatric Psychiatric: Denies anxiety, depression, homicidal ideation, suicidal ideation or other Endocrine Endocrinology: Denies change in body appearance, cold intolerance, excessive sweating, heat intolerance, polydipsia, polyuria or other Hematologic/Lymphatic Hematologic/Lymphatic: Denies anemia, easy bleeding, easy bruising, lymphadenopathy or other Allergic/Immunologic Allergic/Immunologic: Denies rhinitis, hives, eczemia, asthma or other Vital Signs Vital Signs Vital Signs: 01/24/22 14:03 01/24/22 14:11 01/24/22 15:05 Temperature 97.4 F L 97.7 F L Temperature Source Temporal Oral Pulse Rate 54 L 54 L Respiratory Rate 16 15 Respiratory Effort Normal Non-Labored Respiratory Pattern Normal Blood Pressure 169/71 H 203/91 H Blood Pressure Mean 103 128 Pulse Ox 98 95 Oxygen Delivery Method Room Air Room Air 01/24/22 15:44 01/24/22 16:08 01/24/22 16:48 Temperature Temperature Source Pulse Rate 56 L 60 Respiratory Rate 13 17 Respiratory Effort Respiratory Pattern Blood Pressure 188/100 H 181/79 H Blood Pressure Mean 129 113 Pulse Ox 93 96 96 Oxygen Delivery Method Room Air Room Air Room Air 01/24/22 16:57 08/15/22 17:17 Temperature Temperature Source Pulse Rate 58 L 68 Respiratory Rate 12 17 Respiratory Effort Respiratory Pattern Blood Pressure 178/72 H 140/77 H Blood Pressure Mean 107 98 Pulse Ox 96 96 Oxygen Delivery Method Room Air Room Air Weight Weight: 61.9 kg Body Mass Index (BMI) 23.4 Physical Exam Const alert, oriented x3, no apparent distress, average body habitus, healthy appearing and well nourished Constitutional Narrative: Elderly white female sitting up in bed emergency department, and daughter at bedside, patient appears comfortable nontoxic General Appearance: cooperative HEENT normocephalic, head/scalp atraumatic and moist oral mucous membranes HEENT Narrative: Markedly hard of hearing, dentition is good for age, Mallampati 2, no thrush Eyes PERRL, EOMs intact bilaterally and conjunctivae normal Eyes Narrative: No scleral icterus Neck no lymphadenopathy, supple, no JVD and no carotid bruits Neck Narrative: Trachea midline, no thyroid enlargement Resp normal respiratory effort, no retractions, no use of accessory muscles and clear to auscultation bilaterally Auscultation: Negative for crackles, rales, rhonchi or wheezes Cardio regular rate, regular rhythm, S1 normal heart sound, S2 normal heart sound, no murmurs, no rub, no gallops, no clicks and no JVD Cardio Narrative: Few ectopic beats GI normal to inspection, nondistended, normoactive bowel sounds, soft to palpation, non-tender and non-distended Extremity normal to inspection, full ROM and no clubbing, cyanosis or edema Skin no rashes or lesions noted, no wounds, skin turgor normal, no jaundice, no petechiae and no mottling Neuro oriented x3, CN's II-XII intact bilaterally, moves all extremities and no focal motor deficits Neuro Narrative: Mild generalized weakness Sensorium / Orientation: awake, alert, oriented to person, oriented to place and oriented to time Speech: speech normal Psych affect normal Psych Narrative: Appropriately interactive Results Lab / Micro Data Attestation: I reviewed the patient's lab results. Result Diagrams: 01/24/22 14:33 01/24/22 14:33 Labs: Laboratory Results - last 24 hr 01/24/22 14:33: WBC 10.3, RBC 5.00, Hgb 15.7 H, Hct 47.2 H, MCV 94.4, MCH 31.4, MCHC 33.3, RDW Std Deviation 50.9 H, RDW Coeff of [place] 14.6, Plt Count 240, MPV 10.5, Immature Gran % (Auto) 0.300, Neut % (Auto) 88.7 H, Lymph % (Auto) 6.3 L, Green % (Auto) 4.1, Eos % (Auto) 0.2, Baso % (Auto) 0.4, Absolute Neuts (auto) 9.2 H, Absolute Lymphs (auto) 0.65 L, Nucleated RBC % 0 01/24/22 14:33: Sodium 139, Potassium 4.0, Chloride 103, Carbon Dioxide 28.0, Anion Gap 8, BUN 13, Creatinine 0.98, Estim Creat Clear Calc 36.24, Est GFR (MDRD) Af Amer 69, Est GFR (MDRD) Non-Af 57 L, BUN/Creatinine Ratio 13.3, Glucose 131 H, Calcium 9.8 01/24/22 16:43: Urine Color Straw, Urine Clarity Clear, Urine pH 7.0, Ur Specific [place] 1.010, Urine Protein Negative, Urine Glucose (UA) Normal, Urine Ketones 15 H, Urine Occult Blood Negative, Urine Nitrite Negative, Urine Bilirubin Negative, Urine Urobilinogen Normal, Ur Leukocyte Esterase 500 H Rhythm Strip Rhythm Strip: Sinus Rhythm Rate: 55 Ectopy: None Radiology Impression Brain CT 01/24/22 15:09 IMPRESSION: Chronic involutional changes of the brain. N.B. : The above Results were Read Back by Roman Zapata MD to Dr. Lashae MD, and understanding confirmed on 01/24/2022 15:39:11 (ET). Electronically Signed: Roman Zapata MD at 15:40 EDT Reading Location ID and State: [facility] / [place] , Service support , ADDENDUM: 01/24/22 1547 IMPRESSION: Chronic involutional changes of the brain. N.B. : The above Results were Read Back by Roman Zapata MD to Dr. Lashae MD, and understanding confirmed on 01/24/2022 15:39:11 (ET). Electronically Signed: Roman Zapata MD at 15:40 EDT , Chest X-Ray 01/24/22 15:16 IMPRESSION: No acute process Electronically Signed: Roman Zapata MD at 15:28 EDT , Assessment & Plan Assessment/Plan (1) Intermittent vertigo: (2) Elevated blood pressure reading: (3) Erythrocytosis: PLAN: Plan Vertigo -Sounds like BPPV -Symptoms currently resolved -We will rule out vertebrobasilar insufficiency -MRI -Check echocardiogram -Continue home statin -Continue home aspirin -Check lipids/hemoglobin A1c -Antivert as needed -Antiemetics as needed -Patient was asymptomatic upon my evaluation -PT/OT evaluation Elevated blood pressure reading -Patient's blood pressure was markedly elevated on arriving to the emergency department -Patient does not have elevated blood pressure at baseline and takes no antihypertensive -Was given hydralazine 10 mg with marked improvement prior to admission -We will continue to monitor -CO blood pressure medications available -If blood pressure remains elevated patient may need further medications Erythrocytosis -Unclear if this is just related to some volume depletion versus baseline -No baseline lab data here for comparison -Repeat CBC in a.m. Hypothyroidism -Continue home levothyroxine -Check TSH in a.m. GERD -Continue home omeprazole Hyperlipidemia -Continue home simvastatin -Check lipids Osteoporosis -Restart alendronate on discharge -Continue calcium carbonate -Restart cholecalciferol on discharge Mild dementia -Continue home Aricept -Aricept could be the cause for her lower heart rates as patient does have intermittent bradycardia DVT prophylaxis -Lovenox subcu -SCDs CODE STATUS -full code is verified with the patient on admission Charges/Coding Visit Charges Inpatient E&M: 97019 Init Hosp L3
[2022-01-24 18:08] LABS: Troponin-I HS 7 pg/mL (3.0-54.0)
[2022-01-24 18:38] LABS: Bacteria 2+ /hpf (None Seen); Squamous Epithelial Cells - UA 0-5 SEEN /hpf (5-10); White Blood Cells 5-10 SEEN /hpf (0-5)
--- NOTE | 2022-01-24 19:46 | PCM.HOSP.N ---
Hospitalist Note Her UA differential did finally result and she does have white cells with some bacteria along with her positive leuk esterase noted previously. Urine culture was sent and she was started empirically on ceftriaxone. She did have positive urinary symptoms.
[2022-01-24] MEDS: Donepezil HCl 5 MG Tablet PO (21:23)
[2022-01-24] MEDS: Atorvastatin Calcium 20 MG Tablet PO (21:24)
[2022-01-24] MEDS: Ceftriaxone 1 GM/50 ML BAG IV (21:24)
[2022-01-25 00:31] VITALS: BMI 23.1
[2022-01-25 01:40] VITALS: BP 135/60; PULSE 62; RESP 16; TEMP 37.1; O2SAT 97
[2022-01-25 03:00] VITALS: PULSE 56
[2022-01-25 05:46] LABS: Absolute Lymphocyte Count 1.44 X10^3/uL (0.83-4.51); Absolute Neutrophil Count 6.1 X10^3/uL (2.0-7.7); Basophil# 0.05 X10^3/uL; Basophil% 0.6 % (0-1); Eosinophils% 1.2 % (0-5); Hematocrit 42.9 % (37-47); Hemoglobin 14.2 g/dL (12.0-15.0); Lymphocyte # 1.44 X10^3/ul (0.83-4.51); Lymphocyte % 16.6 % (19-41); Mean Corp Hgb Conc 33.1 g/dL (32-36); Mean Corpuscular Hgb 30.9 pg (27.0-32.0); Mean Corpuscular Volume 93.5 fL (81-99); Mean Platelet Vol. 10.6 fl (6.2-12.0); Monocyte# 0.96 X10^3/uL; Monocyte% 11.1 % (0-10); NRBC Flagged by Analyzer 0 % (0-5); Neutrophil # 6.08 X10^3/uL (2.7-7.7); Neutrophil % 70.3 % (47-70); Platelet Count 246 K/mm3 (150-450); RBC Distribution Width CV 14.5 % (11.6-14.6); RBC Distribution Width SD 50.2 fl (35.1-43.9); Red Blood Count 4.59 M/mm3 (4.2-5.4); White Blood Count 8.7 K/mm3 (4.4-11.0)
[2022-01-25] MEDS: Levothyroxine 88 MCG Tablet PO (05:57)
[2022-01-25 06:25] LABS: AST(SGOT) 16 U/L (15-37); Alanine Aminotransfer ALT/SGPT 14 U/L (13-56); Albumin, Serum 3.1 g/dL (3.2-5.0); Alkaline Phosphatase 68 U/L (45-117); Anion Gap 7 (5-15); BUN 11 mg/dL (7-18); BUN/Creat Ratio 13.7 RATIO (10-20); Calcium,Total 8.5 mg/dL (8.5-10.1); Chloride 107 mmol/L (98-107); Cholesterol 139 mg/dL (200); EST Glomerular Filtration Rate 72 mL/min (>60); Est Glom Filt Rate - Afr Amer 87 mL/min (>60); Glucose 89 mg/dL (74-106); High Density Lipoprotein 61 mg/dL; Magnesium 2.2 mg/dL (1.6-2.6); Phosphorus 3.1 mg/dL (2.5-4.9); Potassium 3.3 mmol/L (3.5-5.1); Protein, Total 6.1 g/dL (6.4-8.2); Sodium Level 140 mmol/L (136-145); Thyroid Stim Hormone (TSH) 1.83 uIU/mL (0.358-3.74); Triglycerides 92 mg/dL; Very Low Density Lipoprotein 18 mg/dL (5-40)
[2022-01-25 07:57] LABS: Hemoglobin A1c 5.6 % (3.8-5.6)
[2022-01-25 08:55] VITALS: BP 133/62; PULSE 56; RESP 16; TEMP 36.8; O2SAT 98
[2022-01-25 09:00] VITALS: PULSE 51
[2022-01-25] MEDS: Aspirin 81 MG TAB.CHEW PO (09:02)
[2022-01-25] MEDS: Calcium Carb/Vitamin D 1 TABLET Tablet PO (09:02)
[2022-01-25] MEDS: 0.9% Saline Lock 10 ML Syringe IV (09:03)
[2022-01-25] MEDS: Potassium Chloride Oral Tablet 20 MEQ 40 MEQ PO (09:03)
[2022-01-25] MEDS: Ceftriaxone 1 GM/50 ML BAG IV (09:03)
[2022-01-25] MEDS: Pantoprazole Sodium 20 MG Tablet PO (09:03)
[2022-01-25] MEDS: Enoxaparin 40 MG/0.4 ML Syringe SC (09:03)
--- NOTE | 2022-01-25 11:01 | NURSING ---
Lety Mcguire, updated on POC
--- NOTE | 2022-01-25 11:27 | DCINST_ITS ---
Discharge Instructions Diet Discharge Diet: Low fat / Low cholesterol Activity Discharge Activity: Return to Normal Activity Dressing / Incision Call your doctor if you observe: Numbness or Tingling and - (Blurry Vision) Follow Up Care Test Results: Test results from this visit will be discussed in further detail at your follow- up appointment, if applicable. Discharge Plan Admission Admit Date/Time: 01/24/22 17:43 Primary Reason for Your Visit: Blurry Vision Attending Provider: Markie Bradley Primary Care Provider: Geovanna Dominguez Consulting Providers: Gayathri Christiansen Discharge Orders/Prescriptions Prescriptions: New cefdinir 300 mg capsule 300 mg PO BID Qty: 6 0RF Continued cholecalciferol (vitamin D3) [Vitamin D3] 50 mcg (2,000 unit) Capsule 100 mcg PO DAILY donepezil 5 mg tablet 5 mg PO QHS Label Comments: take 1 tablet by mouth once daily at bedtime alendronate 70 mg tablet 70 mg PO QWEEK Label Comments: take 1 tablet by mouth every week calcium carbonate-vitamin D3 600 mg-5 mcg (200 unit) Tablet 1 tab PO BID simvastatin 40 mg tablet 40 mg PO QHS Label Comments: take 1 tablet by mouth once daily levothyroxine 88 mcg tablet 88 mcg PO DAILY Label Comments: take 1 tablet by mouth once daily omeprazole 20 mg capsule,delayed release(DR/EC) 20 mg PO DAILY aspirin 81 mg Tablet,Chewable 81 mg PO DAILY Referrals / Follow Up: Geovanna Dominguez, [employer] [Primary Care Provider] - Disposition Disposition (needs filled in before D/C Order can be placed): Home, Self Care
--- NOTE | 2022-01-25 11:30 | PCM.DC.SUM ---
Documented by User: JEWEL Bay 01/25/22 11:36 Providers Date of Admission: 01/24/22 Date of Discharge: 01/25/22 Primary Care Physician: JEWEL Soriano Reason For Visit: DIZZINESS Diagnosis Discharge Diagnosis (1) Intermittent vertigo: Status: Acute Code(s): R42 - Dizziness and giddiness (2) Elevated blood pressure reading: Status: Acute Code(s): R03.0 - Elevated blood-pressure reading, without diagnosis of hypertension (3) Erythrocytosis: Status: Acute Code(s): D75.1 - Secondary polycythemia Medications at Discharge Home Medications alendronate 70 mg tablet 70 mg PO QWEEK 01/24/22 aspirin 81 mg chewable tablet 81 mg PO DAILY 01/24/22 calcium carbonate 600 mg-vitamin D3 5 mcg (200 unit) tablet 1 tab PO BID 01/24/22 cholecalciferol (vitamin D3) 50 mcg (2,000 unit) capsule (Vitamin D3) 100 mcg PO DAILY 01/24/22 donepezil 5 mg tablet 5 mg PO QHS 01/24/22 levothyroxine 88 mcg tablet 88 mcg PO DAILY 01/24/22 omeprazole 20 mg capsule,delayed release 20 mg PO DAILY 01/24/22 simvastatin 40 mg tablet 40 mg PO QHS 01/24/22 cefdinir 300 mg capsule 300 mg PO BID #6 caps 01/25/22 Hospital Course Operations None Procedures None Summary of Care Provided Minutes Spent on Discharge: 35 Hospital Course: Patient is an 86-year-old female who initially presented with dizziness and blurry vision. Patient states that this is since resolved. Patient also reports that this has been intermittent and has been has been going on for some time as she has had a Holter monitor outpatient. Patient was seen by PT and OT who did not recommend further therapy at this time. Patient underwent MRI which was negative for acute findings. Patient's urine is however positive for infection and patient has received 2 doses of ceftriaxone IV. Patient will be discharged home with Omnicef. Patient will be instructed to follow-up with her PCP in 1 to 2 weeks Physical Exam Const alert, oriented x3 and no apparent distress General Appearance: cooperative HEENT normocephalic and head/scalp atraumatic Eyes conjunctivae normal and no scleral icterus Neck no lymphadenopathy and supple General: trachea midline Lymph Lymphatic: no lymphadenopathy noted Resp normal respiratory effort, normal air movement and clear to auscultation bilaterally Cardio regular rate, regular rhythm, S1 normal heart sound, S2 normal heart sound and peripheral pulses 2+ throughout Rate: bradycardia GI normal to inspection, nondistended, normoactive bowel sounds, soft to palpation and non-tender Extremity normal capillary refill and no clubbing, cyanosis or edema Skin Lesions: no lesions Rashes: no rashes Neuro oriented x3, moves all extremities, no focal motor deficits and no sensory deficits noted Psych affect normal Appearance: appropriate Weight / BMI Weight Weight: 135 lb 2.294 oz Body Mass Index (BMI) 23.1 ABG / Lab / Microbiology Data Result Diagrams: 01/25/22 05:20 01/25/22 05:20 Laboratory: Laboratory Results - last 24 hr 01/24/22 14:33: WBC 10.3, RBC 5.00, Hgb 15.7 H, Hct 47.2 H, MCV 94.4, MCH 31.4, MCHC 33.3, RDW Std Deviation 50.9 H, RDW Coeff of Ambrose 14.6, Plt Count 240, MPV 10.5, Immature Gran % (Auto) 0.300, Neut % (Auto) 88.7 H, Lymph % (Auto) 6.3 L, Guthrie % (Auto) 4.1, Eos % (Auto) 0.2, Baso % (Auto) 0.4, Absolute Neuts (auto) 9.2 H, Absolute Lymphs (auto) 0.65 L, Nucleated RBC % 0 01/24/22 14:33: Sodium 139, Potassium 4.0, Chloride 103, Carbon Dioxide 28.0, Anion Gap 8, BUN 13, Creatinine 0.98, Estim Creat Clear Calc 36.24, Est GFR (MDRD) Af Amer 69, Est GFR (MDRD) Non-Af 57 L, BUN/Creatinine Ratio 13.3, Glucose 131 H, Calcium 9.8 01/24/22 14:33: Troponin I High Sens 7 01/24/22 16:43: Urine Color Straw, Urine Clarity Clear, Urine pH 7.0, Ur Specific Eckert 1.010, Urine Protein Negative, Urine Glucose (UA) Normal, Urine Ketones 15 H, Urine Occult Blood Negative, Urine Nitrite Negative, Urine Bilirubin Negative, Urine Urobilinogen Normal, Ur Leukocyte Esterase 500 H, Urine RBC 0 SEEN, Urine WBC 5-10 SEEN, Ur Squamous Epith Cells 0-5 SEEN, Urine Bacteria 2+, Urine Mucus 0 SEEN 01/25/22 05:20: Hemoglobin A1c 5.6 01/25/22 05:20: WBC 8.7, RBC 4.59, Hgb 14.2, Hct 42.9, MCV 93.5, MCH 30.9, MCHC 33.1, RDW Std Deviation 50.2 H, RDW Coeff of Ambrose 14.5, Plt Count 246, MPV 10.6, Immature Gran % (Auto) 0.200, Neut % (Auto) 70.3 H, Lymph % (Auto) 16.6 L, Guthrie % (Auto) 11.1 H, Eos % (Auto) 1.2, Baso % (Auto) 0.6, Absolute Neuts (auto) 6.1, Absolute Lymphs (auto) 1.44, Nucleated RBC % 0 01/25/22 05:20: Sodium 140, Potassium 3.3 L, Chloride 107, Carbon Dioxide 26.0, Anion Gap 7, BUN 11, Creatinine 0.80, Estim Creat Clear Calc 44.40, Est GFR (MDRD) Af Amer 87, Est GFR (MDRD) Non-Af 72, BUN/Creatinine Ratio 13.7, Glucose 89, Calcium 8.5, Phosphorus 3.1, Magnesium 2.2, Total Bilirubin 0.60, AST 16, ALT 14, Alkaline Phosphatase 68, Total Protein 6.1 L, Albumin 3.1 L, Globulin 3.0, Albumin/Globulin Ratio 1.0, Triglycerides 92, Cholesterol 139, LDL Cholesterol 60, VLDL Cholesterol 18, HDL Cholesterol 61, TSH 1.83 Radiography Diagnostic Testing: Radiology Impression Brain CT 01/24/22 15:09 IMPRESSION: Chronic involutional changes of the brain. N.B. : The above Results were Read Back by Roman Zapata MD to Dr. Lashae MD, and understanding confirmed on 01/24/2022 15:39:11 (ET). Electronically Signed: Roman Zapata MD at 15:40 EDT Reading Location ID and State: [facility] / [place] , Service support , ADDENDUM: 01/24/22 1547 IMPRESSION: Chronic involutional changes of the brain. N.B. : The above Results were Read Back by Roman Zapata MD to Dr. Lashae MD, and understanding confirmed on 01/24/2022 15:39:11 (ET). Electronically Signed: Roman Zapata MD at 15:40 EDT , Chest X-Ray 01/24/22 15:16 IMPRESSION: No acute process Electronically Signed: Roman Zapata MD at 15:28 EDT , Brain MRI 01/24/22 17:49 IMPRESSION: Negative MRI brain without intravenous contrast. Electronically Signed: Rickie Joshi MD at 19:38 EDT , Head/Neck CTA 01/24/22 17:49 IMPRESSION: 1. There are no acute findings of the right and left internal carotid artery. ALL ABOVE CRITERIA BY NASCET. 2. There is calcified plaque formation of the right cavernous carotid artery, with a mild stenosis (less than 50%). ALL ABOVE CRITERIA BY NASCET. 3. There is calcified plaque formation of the left cavernous carotid artery, with a mild stenosis (less than 50%). ALL ABOVE CRITERIA BY NASCET. Electronically Signed: Rickie Joshi MD at 18:29 EDT , ADDENDUM: 01/24/22 1846 IMPRESSION: 1. There are no acute findings of the right and left internal carotid artery. ALL ABOVE CRITERIA BY NASCET. 2. There is calcified plaque formation of the right cavernous carotid artery, with a mild stenosis (less than 50%). ALL ABOVE CRITERIA BY NASCET. 3. There is calcified plaque formation of the left cavernous carotid artery, with a mild stenosis (less than 50%). ALL ABOVE CRITERIA BY NASCET. N.B. : The above Results were Read Back by Rickie Joshi MD to MD christopher, and understanding confirmed on 01/24/2022 18:40:03 (ET). Electronically Signed: Rickie Joshi MD at 18:29 EDT , D/C Instructions Discharge Diet: Low fat / Low cholesterol Call your doctor if you observe: Numbness or Tingling and - (Blurry Vision) Meaningful Use Info Meaningful Use Diagnoses (Choose all that apply): None applicable Discharge Plan Admission Admit Date/Time: 01/24/22 17:43 Primary Reason for Your Visit: Blurry Vision Attending Provider: Markie Bradley Primary Care Provider: Geovanna Dominguez Consulting Providers: Gayathri Christiansen Discharge Orders/Prescriptions Prescriptions: New cefdinir 300 mg capsule 300 mg PO BID Qty: 6 0RF Continued cholecalciferol (vitamin D3) [Vitamin D3] 50 mcg (2,000 unit) Capsule 100 mcg PO DAILY donepezil 5 mg tablet 5 mg PO QHS Label Comments: take 1 tablet by mouth once daily at bedtime alendronate 70 mg tablet 70 mg PO QWEEK Label Comments: take 1 tablet by mouth every week calcium carbonate-vitamin D3 600 mg-5 mcg (200 unit) Tablet 1 tab PO BID simvastatin 40 mg tablet 40 mg PO QHS Label Comments: take 1 tablet by mouth once daily levothyroxine 88 mcg tablet 88 mcg PO DAILY Label Comments: take 1 tablet by mouth once daily omeprazole 20 mg capsule,delayed release(DR/EC) 20 mg PO DAILY aspirin 81 mg Tablet,Chewable 81 mg PO DAILY Referrals / Follow Up: Geovanna Dominguez, [employer] [Primary Care Provider] - Disposition Disposition (needs filled in before D/C Order can be placed): Home, Self Care Documented by User: Dr. Markie Bradley DO 01/25/22 18:07 Providers Date of Admission: 01/24/22 Reason For Visit: DIZZINESS Diagnosis Discharge Diagnosis (1) Intermittent vertigo: Status: Acute Code(s): R42 - Dizziness and giddiness (2) Elevated blood pressure reading: Status: Acute Code(s): R03.0 - Elevated blood-pressure reading, without diagnosis of hypertension (3) Erythrocytosis: Status: Acute Code(s): D75.1 - Secondary polycythemia Medications at Discharge Home Medications alendronate 70 mg tablet 70 mg PO QWEEK 01/24/22 aspirin 81 mg chewable tablet 81 mg PO DAILY 01/24/22 calcium carbonate 600 mg-vitamin D3 5 mcg (200 unit) tablet 1 tab PO BID 01/24/22 cholecalciferol (vitamin D3) 50 mcg (2,000 unit) capsule (Vitamin D3) 100 mcg PO DAILY 01/24/22 donepezil 5 mg tablet 5 mg PO QHS 01/24/22 levothyroxine 88 mcg tablet 88 mcg PO DAILY 01/24/22 omeprazole 20 mg capsule,delayed release 20 mg PO DAILY 01/24/22 simvastatin 40 mg tablet 40 mg PO QHS 01/24/22 cefdinir 300 mg capsule 300 mg PO BID #6 caps 01/25/22 ABG / Lab / Microbiology Data Result Diagrams: 01/25/22 05:20 01/25/22 05:20 Discharge Plan Admission Admit Date/Time: 01/24/22 17:43 Primary Reason for Your Visit: Blurry Vision Attending Provider: Markie Bradley Primary Care Provider: Geovanna Dominguez Consulting Providers: Gayathri Christiansen Discharge Orders/Prescriptions Prescriptions: New cefdinir 300 mg capsule 300 mg PO BID Qty: 6 0RF Continued cholecalciferol (vitamin D3) [Vitamin D3] 50 mcg (2,000 unit) Capsule 100 mcg PO DAILY donepezil 5 mg tablet 5 mg PO QHS Label Comments: take 1 tablet by mouth once daily at bedtime alendronate 70 mg tablet 70 mg PO QWEEK Label Comments: take 1 tablet by mouth every week calcium carbonate-vitamin D3 600 mg-5 mcg (200 unit) Tablet 1 tab PO BID simvastatin 40 mg tablet 40 mg PO QHS Label Comments: take 1 tablet by mouth once daily levothyroxine 88 mcg tablet 88 mcg PO DAILY Label Comments: take 1 tablet by mouth once daily omeprazole 20 mg capsule,delayed release(DR/EC) 20 mg PO DAILY aspirin 81 mg Tablet,Chewable 81 mg PO DAILY Referrals / Follow Up: Geovanna Dominguez, [employer] [Primary Care Provider] - Disposition Disposition (needs filled in before D/C Order can be placed): Home, Self Care Charges/Coding Addendum Addendum: Seen and examined today independently of Radhika Sewell, she has no symptoms of lightheadedness or dizziness. Patient had an MRI performed which did not show evidence of ischemic stroke. Patient had an echocardiogram in 2019 which showed no evidence of atrial septal defect. On examination she appeared in good health and spirits, she does not appear to be in any distress. Vital signs as documented. Skin warm and dry and without overt rashes. Neck without JVD, thyroid appears normal, trachea is midline, neck is supple. Lungs clear, normal air movement was noted. Heart exam notable for regular rhythm, normal sounds and absence of murmurs, rubs or gallops. Abdomen unremarkable and without evidence of organomegaly, masses, or abdominal aortic enlargement, bowel sounds are present in all 4 quadrants, no abdominal tenderness was noted. Extremities nonedematous, no cyanosis was noted, no clubbing was noted. Neuro: Cranial nerves II through XII are grossly intact, no focal motor deficits were noted, sensation to light touch and pinprick is intact, motor exam 5/5 throughout. Psych: Patient is alert and oriented x3, she does not appear anxious or depressed, she does not appear agitated. Impression: #1 vertigo-etiology unclear #2 dementia-patient is on Aricept #3 hyperlipidemia-patient is on simvastatin #4 acute cystitis-organism unknown-patient will be discharged on Omnicef I have reviewed Radhika Marcumlissy's discharge summary including her medical assessment and plan of care and with the above additions endorse it. Total clinical time spent by myself addressing the patient's medical issues, reviewing the data, and collaborating with patient's care team: 25 minutes Visit Charges OBSV E&M: 16454 Observation care discharge
--- NOTE | 2022-01-25 11:37 | CASEMGMT ---
Per therapy, no need for any further therapy at discharge. Vibha CUEVA CM
--- NOTE | 2022-01-25 12:24 | PHA.DC.MC ---
Pharmacy Service has performed discharge medication reconciliation and counseling for this patient. 1. CEFDINIR 300MG PO BID X 3 DAYS The patient's discharge medication list was reviewed for discrepancies and discrepancies were resolved. Home Medications alendronate 70 mg tablet 70 mg PO QWEEK 01/24/22 aspirin 81 mg chewable tablet 81 mg PO DAILY 01/24/22 calcium carbonate 600 mg-vitamin D3 5 mcg (200 unit) tablet 1 tab PO BID 01/24/22 cholecalciferol (vitamin D3) 50 mcg (2,000 unit) capsule (Vitamin D3) 100 mcg PO DAILY 01/24/22 donepezil 5 mg tablet 5 mg PO QHS 01/24/22 levothyroxine 88 mcg tablet 88 mcg PO DAILY 01/24/22 omeprazole 20 mg capsule,delayed release 20 mg PO DAILY 01/24/22 simvastatin 40 mg tablet 40 mg PO QHS 01/24/22 cefdinir 300 mg capsule 300 mg PO BID #6 caps 01/25/22 The patient was counseled on the following discharge medications and changes in medications for homegoing were reviewed. The Reason for Use, instructions for use, and potential side effects were reviewed for all new medications. The patient's questions regarding all of their medications were answered. The patient was able to verbally demonstrate an understanding of their discharge medications. The patient demonstrated some understanding but would benefit from further education and reinforcement. Patient counseled by balloon design [email or web address].
[2022-01-25 13:30] VITALS: BP 124/62; PULSE 54; RESP 16; TEMP 36.5; O2SAT 98
[2022-01-25 13:51] VITALS: BMI 23.1
== END 2022-01-25 13:55 | disposition home or self-care (01) ==
LOC: ED 17:38 → PCU 17:55
PROVIDERS: Admitting Provider Internal Medicine; Emergency Provider Emergency Medicine; PCP Nurse Practitioner Family; Visit Provider Internal Medicine
DX: N30.00 Acute cystitis without hematuria (principal); F03.90 Unspecified dementia, unspecified severity, without behavioral disturbance, psychotic disturbance, mood disturbance, and anxiety; R42 Dizziness and giddiness; I65.23 Occlusion and stenosis of bilateral carotid arteries; H53.8 Other visual disturbances; R11.2 Nausea with vomiting, unspecified; D75.1 Secondary polycythemia; R03.0 Elevated blood-pressure reading, without diagnosis of hypertension; R00.1 Bradycardia, unspecified; E78.5 Hyperlipidemia, unspecified; K21.9 Gastro-esophageal reflux disease without esophagitis; E03.9 Hypothyroidism, unspecified; Z79.899 Other long term (current) drug therapy; Z79.82 Long term (current) use of aspirin; Z79.890 Hormone replacement therapy
CPT/HCPCS: 36415; 70450; 70496; 70498; 70551; 71045; 80048; 80053; 80061; 81001; 83036; 83735; 84100; 84443; 84484; 85025; 87086; 93005; 96365; 96366; 96372; 96375; 97161; 97165; 99218; 99285; J7050; Q9967; A4216; G0378

== ENCOUNTER → 2022-09-13 | Outpatient (CLI) | payer MEDICARE, SELFPAY ==
--- NOTE | 2022-09-13 15:18 | MRI_ITS ---
INDICATION: VERTIGO, dizzy spells EXAMINATION: MRI - MR Brain WO/W Contrast TECHNIQUE: Multiplanar and multisequence MR images of the brain were obtained without and with gadolinium. IV Contrast Dosage and Agent: None. COMPARISON: 01/24/2022. FINDINGS: BRAIN AND EXTRA-AXIAL SPACES: No intracranial mass, mass effect, or midline shift. No enhancing lesion. No hemorrhage, hydrocephalus, or acute territorial infarct. Mild foci of T2 signal hyperintensity in the white matter are consistent with microvascular ischemia. Mild cerebral atrophy with widening of the extra-axial spaces and ventricular dilation. Basal cisterns are unremarkable. SELLA: Pituitary gland is normal in height. AUDITORY SYSTEM: Unremarkable. BONES/JOINTS: Unremarkable. SINUSES: Unremarkable as visualized. Clear. MASTOID AIR CELLS: Unremarkable as visualized. Clear. ORBITS: Unremarkable as visualized. VASCULATURE: Normal flow voids in the major intracranial circulation. MRI/Brain W/WO Contrast IMPRESSION: No acute findings. Mild microvascular ischemic changes. Mild atrophy. Electronically Signed: Lana Perez MD at 22:41 EDT Reading Location ID and State: [id number] / Tel , Service support ,
== END | disposition home or self-care (01) ==
LOC: MRI 15:08
PROVIDERS: PCP Nurse Practitioner Family; Referring Provider Nurse Practitioner Family; Visit Provider Nurse Practitioner Family
DX: R42 Dizziness and giddiness (principal)
CPT/HCPCS: 70553; A9575

== ENCOUNTER 2022-10-06 19:36 | Emergency (ER) | payer MEDICARE, SELFPAY ==
[2022-10-06 19:38] VITALS: BP 155/60; PULSE 54; RESP 16; TEMP 36.7; O2SAT 96; BMI 25.9
[2022-10-06] MEDS: Morphine 4 MG/ML Syringe IV ×2 (21:20→23:45)
[2022-10-06] MEDS: Ondansetron 4 MG/2 ML Vial IV (21:20)
--- NOTE | 2022-10-06 21:30 | RAD_ITS ---
INDICATION: Injury/Pain EXAMINATION/TECHNIQUE: X-RAY - RIGHT XR Wrist 3 VIEWS COMPARISON: None. FINDINGS: SOFT TISSUES: There is soft tissue swelling. No radiopaque foreign body. BONES/JOINTS: Fractures are noted at the distal end of the radius and ulna.. Preservation of the joint space.. No sclerotic or destructive changes observed. RAD/Wrist min 3 Views IMPRESSION: Distal radial and ulnar fractures.. Electronically Signed: Landry Velasquez DO at 22:36 EDT Reading Location ID and State: [facility] / [place] Tel [phone], Service support ,
--- NOTE | 2022-10-06 22:07 | EDS_ITS ---
HPI HPI - Fall History of Present Illness Chief Complaint: Fall Informant: patient and family Occured/Mechanism Occurred: Today Mechanism/Context: Yes same level fall and Yes trip Pain/Injury Location: Right wrist Quality of Pain: Sharp Current Severity: Severe Maximum Severity: Severe Worsened by: Movement Relieved by: Rest Associated Symptoms Associated Symptoms: Negative for Parasthesias, Weakness, Loss of function, Inability to ambulate, Loss of consciousness or Amnesia Narrative Narrative: Patient presents after tripping and falling today. Patient was walking out the longterm where her is currently staying for rehab. Patient tripped and fell forward. Patient hit her face on the ground. Patient also landed on her right wrist and bilateral knees. Patient states she has pain in her right wrist mainly. Patient admits to mild pain in both knees and in her face. Patient states her front incisors on the right have been pushed back. Patient is unsure of her last tetanus. Patient does not take any blood thinners. Patient denies any loss of consciousness. Patient denies any paresthesias or weakness. Tetanus Immunization: Unknown [facility] Medical History Dementia Elevated blood pressure reading Erythrocytosis GERD (gastroesophageal reflux disease) Hyperlipidemia Hypothyroid Kidney disease Migraines No acute medical problems Osteoporosis Home Medications alendronate 70 mg tablet 70 mg PO QWEEK 01/24/22 [History Last Taken 01/23/22] calcium carbonate 600 mg-vitamin D3 5 mcg (200 unit) tablet 1 tab PO BID 01/24/22 [History Last Taken 01/24/22 10:00] cholecalciferol (vitamin D3) 50 mcg (2,000 unit) capsule (Vitamin D3) 100 mcg PO DAILY 01/24/22 [History Last Taken 01/23/22 22:00] donepezil 5 mg tablet 5 mg PO QHS 01/24/22 [History Last Taken Unknown] levothyroxine 88 mcg tablet 88 mcg PO DAILY 01/24/22 [History Last Taken 01/24/22 08:00] omeprazole 20 mg capsule,delayed release 20 mg PO DAILY 01/24/22 [History Last Taken 01/24/22 08:00] simvastatin 40 mg tablet 40 mg PO QHS 01/24/22 [History Last Taken 01/23/22 22:00] cefdinir 300 mg capsule 300 mg PO BID #6 caps 01/25/22 [Rx Last Taken Unknown] aspirin 325 mg tablet 325 mg PO DAILY 10/06/22 [History Last Taken Unknown] hydrocodone-acetaminophen 5-325mg 5mg-325mg 1 tab PO Q6H PRN PRN Pain 3 days #10 TABLETS 10/06/22 [Rx Last Taken Unknown] Allergy/AdvReac Type Severity Reaction Status Date / Time Penicillins Allergy Hives Verified 01/24/22 15:10 ibuprofen AdvReac Other Verified 01/24/22 15:13 Family History (Updated 01/24/22 @ 18:[address] Gayathri Christiansen DO) Other Heart disease Hypertension Surgical History Hx of tonsillectomy Social History household members: spouse Smoking Status: Never smoker alcohol intake: never substance use type: does not use additional social history: Lives with , currently in process of downsizing/moving to independent living with him. Ambulates independently at baseline. ROS ROS ED Constitutional Constitutional ED: Denies chills or fever(s) Eyes Eyes: Denies blurry vision or change in vision ENT ENT ED: Denies rhinorrhea or sore throat Cardiovascular Cardiovascular: Denies chest pain or palpitations Respiratory/Chest Respiratory/Chest: Denies cough or dyspnea Gastrointestinal Gastrointestinal: Denies nausea or vomiting Genitourinary Genitourinary ED: Denies dysuria or hematuria Musculoskeletal Musculoskeletal: Denies back pain or neck pain Integumentary Reports Abrasions; Denies abscess or rash Neurologic Neurologic: Denies headache(s) or weakness Allergic/Immunologic Allergic/Immunologic ED: Denies mouth swelling or urticaria EXAM Physical Exam Const Vital Signs: 10/06/22 19:38 10/06/22 19:46 10/06/22 23:22 Temperature 98.1 F 97.8 F Temperature Source Oral Pulse Rate 54 L 59 L Pulse Rate [1 (Initial Baseline)] Respiratory Rate 16 16 Respiratory Rate [1 (Initial Baseline)] Respiratory Effort Normal Respiratory Depth Normal Respiratory Pattern Normal Blood Pressure 155/60 H 138/73 H Blood Pressure [1 (Initial Baseline)] Blood Pressure Mean 91 Pulse Ox 96 97 Oxygen Delivery Method Room Air Room Air Nasal Cannula Oxygen Delivery Method [1 (Initial Baseline)] Oxygen Flow Rate (L/min) 2 Oxygen Flow Rate (L/min) [1 (Initial Baseline)] 10/06/22 23:24 10/06/22 23:30 10/06/22 23:35 Temperature Temperature Source Pulse Rate Pulse Rate [1 (Initial Baseline)] 61 Respiratory Rate Respiratory Rate [1 (Initial Baseline)] 12 Respiratory Effort Respiratory Depth Respiratory Pattern Blood Pressure Blood Pressure [1 (Initial Baseline)] 159/71 H Blood Pressure Mean Pulse Ox Oxygen Delivery Method Nasal Cannula Nasal Cannula Oxygen Delivery Method [1 (Initial Baseline)] Nasal Cannula Oxygen Flow Rate (L/min) 4 Oxygen Flow Rate (L/min) [1 (Initial Baseline)] 2 10/06/22 23:45 Temperature Temperature Source Pulse Rate Pulse Rate [1 (Initial Baseline)] Respiratory Rate Respiratory Rate [1 (Initial Baseline)] Respiratory Effort Respiratory Depth Respiratory Pattern Blood Pressure Blood Pressure [1 (Initial Baseline)] Blood Pressure Mean Pulse Ox Oxygen Delivery Method Room Air Oxygen Delivery Method [1 (Initial Baseline)] Oxygen Flow Rate (L/min) Oxygen Flow Rate (L/min) [1 (Initial Baseline)] Positive well nourished, well developed and obese General Appearance ED: well developed and NAD Nutritional Appearance: obese HEENT HEENT Narrative: There is a superficial abrasion of the right upper lip externally. There is no mucosal laceration noted. Teeth are intact. There is no loosening of the teeth. Oral mucosa is pink and moist. Oropharynx is clear. Airway is patent. Eyes PERRL and EOMs intact bilaterally Resp normal respiratory effort and clear to auscultation bilaterally Cardio regular rate and regular rhythm GI non-tender and non-distended Palpation: soft Extremity Extremity Narrative: There is tenderness, edema, ecchymosis, and deformity over the right distal radius. Range of motion was limited in all motions of the right wrist secondary to pain. There is good range of motion of the right elbow. Radial pulses are equal bilaterally. Sensation was intact to light touch in the radial, median, and ulnar areas. Strength is 5/5 in the radial, median, and ulnar areas. Neuro oriented x3, CN's II-XII intact bilaterally, moves all extremities, no focal motor deficits and no sensory deficits noted Sensorium / Orientation: alert Motor Exam: strength 5/5 throughout Psych mental status grossly normal and thought process normal Skin Skin Narrative: There are superficial abrasions over the knees bilaterally as well as the right upper lip. There is no active bleeding noted. There are no foreign bodies noted. There is no tenderness over the knees. There is good range of motion of the knees. There are no abrasions or lacerations over the right wrist. MDM MDM MDM Narrative Medical decision making narrative: Differential diagnosis includes right wrist fracture, knee abrasions, and facial abrasion. X-rays of the right wrist were obtained to assess for fracture and displacement. Radiography Diagnostic Testing: Clinical Impression(s) from Imaging Studies Wrist X-Ray 10/06/22 21:30 IMPRESSION: Distal radial and ulnar fractures.. Electronically Signed: Landry Velasquez DO at 22:36 EDT Reading Location ID and State: [facility] / [place] Tel [phone], Service support , X-rays of the right wrist were obtained. There are 3 views. On my independent interpretation, there is a comminuted fracture of the right distal radius extending into the radiocarpal joint. There is a questionable ulnar styloid fracture. Radiologist also interpreted the x-rays and did note that there is a ulnar styloid fracture. Repeat x-rays of the right wrist were obtained. There are 3 views. On my independent interpretation, there is improved alignment of the fracture fragments however, there is still some slight dorsal angulation of the distal radius. Radiologist also interpreted the x-rays and agrees. Treatment and Re-Evaluation Narrative: Patient was given morphine and Zofran initially. Patient was advised of her findings. Patient was given a repeat dose of morphine. Patient was advised of the need for sedation to reduce the fracture. Patient was advised of the risks and benefits associated with this. Patient was given the opportunity ask questions. She had no further questions. Patient is agreeable to sedation and reduction. Informed consent was signed. Patient was placed on continuous ca rdiac and pulse oximeter monitors along with CO2 monitor. Timeout was performed at 2325. Patient was given a dose of 60 mg of propofol. Finger traps were used to help with traction. The fracture was reduced. Patient was placed in a well- padded custom made AP splint using 3 inch Ortho-Glass. Patient tolerated the procedure well. Total time of sedation was 8 minutes. Neurovascular exam was i ntact before and after the procedure. Repeat x-rays will be obtained to assess for reduction of the fracture. There is improved alignment of the fracture fragments however there is still some dorsal angulation of the distal radius. Patient was advised of the findings. Patient was advised of the possibility of surgical repair of the wrist fracture. Patient was given a prescription for [place]. Patient was instructed to ice and elevate the right wrist. Patient was instructed to follow-up with her primary care physician in 5 to 7 days. Patient was also given referral for Dr. Perez from orthopedics. Patient and family understood and were agreeable with the plan. All questions were answered. Procedures Upper Extremity Splints Upper Extremity Splint: Orthoglass and - (Short arm AP splint) Splint Fabrication: Fabricated Location: Right Procedural Sedation 1 (Initial Baseline): Consent Signed: Yes Any Problems With Anesthesia: No You/Your family experience fever (hyperthermia) w/anesthesia: No Sedation medication: Propofol Dose: 60 Route: IV Maliampati Score: Class II ASA Classification: II Discharge Plan Triage Chief Complaint: Fall ED Provider: Darren Pierce Dx/Rx/DC Orders Clinical Impression: Abrasion of both knees, Abrasion of face, Closed head injury, Closed fracture of right distal radius and ulna Instructions: ED Fracture, Upper Extremity, ED Head Injury (Adult) Prescriptions: New hydrocodone-acetaminophen [hydrocodone-acetaminophen] 5-325 mg tablet 1 tab PO Q6H PRN PRN (Reason: Pain) 3 Days Qty: 10 0RF No Action cholecalciferol (vitamin D3) [Vitamin D3] 50 mcg (2,000 unit) Capsule 100 mcg PO DAILY donepezil 5 mg tablet 5 mg PO QHS Label Comments: take 1 tablet by mouth once daily at bedtime alendronate 70 mg tablet 70 mg PO QWEEK Label Comments: take 1 tablet by mouth every week calcium carbonate-vitamin D3 600 mg-5 mcg (200 unit) Tablet 1 tab PO BID simvastatin 40 mg tablet 40 mg PO QHS Label Comments: take 1 tablet by mouth once daily levothyroxine 88 mcg tablet 88 mcg PO DAILY Label Comments: take 1 tablet by mouth once daily omeprazole 20 mg capsule,delayed release(DR/EC) 20 mg PO DAILY cefdinir 300 mg capsule 300 mg PO BID Qty: 6 0RF aspirin 325 mg Tablet 325 mg PO DAILY Stand Alone Forms: ED Work / School Excuse Primary Care Provider: Geovanna Dominguez Referrals: Ramone Perez DO [Med Staff - Active Staff] - 3-5 Days Geovanna Dominguez NP-C [Primary Care Provider] - 5-7 Days Disposition Disposition: Home, Self Care
[2022-10-06] MEDS: Propofol 200 MG/20 ML Vial IV BOLUS (23:17)
[2022-10-06 23:22] VITALS: BP 138/73; PULSE 59; RESP 16; TEMP 36.6; O2SAT 97
[2022-10-06 23:24] VITALS: BP 159/71; PULSE 61; RESP 12; O2SAT 97
[2022-10-06 23:30] VITALS: BP 159/71; O2SAT 97
[2022-10-06 23:35] VITALS: O2SAT 98
[2022-10-06 23:45] VITALS: BP 128/60; O2SAT 92
[2022-10-06] MEDS: Diphth,Pertuss(Acell),Tet Vac 0.5 ML Vial IM (23:46)
--- NOTE | 2022-10-07 00:02 | RAD_ITS ---
EXAM: XR RIGHT WRIST, 2 VIEWS CLINICAL INDICATION: Right wrist fracture TECHNIQUE: Frontal and lateral views of the right wrist. This report was created using [employer] report generation technology. COMPARISON: 10/06/2022 FINDINGS: BONES/JOINTS: Reduction and casting of the previously described distal radial and ulnar fractures with improved alignment. Preservation of the joint space. No sclerotic or destructive changes observed. SOFT TISSUES: Soft tissue swelling. No radiopaque foreign body. RAD/Wrist 2 Views IMPRESSION: Reduction and casting of the previously described distal radial and ulnar fractures with improved alignment. Electronically Signed: Rickie Coates MD at 0:38 EDT ,
[2022-10-07 00:38] VITALS: BP 111/55; PULSE 61; RESP 14; RESP 16; O2SAT 92
== END 2022-10-06 23:55 | disposition home or self-care (01) ==
PROVIDERS: Emergency Provider Emergency Medicine; PCP Nurse Practitioner Family; Visit Provider Emergency Medicine
DX: S52.501A Unspecified fracture of the lower end of right radius, initial encounter for closed fracture (principal); F03.90 Unspecified dementia, unspecified severity, without behavioral disturbance, psychotic disturbance, mood disturbance, and anxiety; S52.611A Displaced fracture of right ulna styloid process, initial encounter for closed fracture; S00.511A Abrasion of lip, initial encounter; S80.212A Abrasion, left knee, initial encounter; S80.211A Abrasion, right knee, initial encounter; W18.09XA Striking against other object with subsequent fall, initial encounter; Z23 Encounter for immunization; E78.5 Hyperlipidemia, unspecified; E03.9 Hypothyroidism, unspecified; K21.9 Gastro-esophageal reflux disease without esophagitis; M81.0 Age-related osteoporosis without current pathological fracture; E66.9 Obesity, unspecified; Z79.82 Long term (current) use of aspirin; Z79.890 Hormone replacement therapy; Z79.899 Other long term (current) drug therapy
CPT/HCPCS: 25600; 73100; 73110; 90471; 96374; 96375; 96376; 99285; J7030; A4216; J2405

== ENCOUNTER 2022-10-11 10:58 | Day surgery (SDC) | payer MEDICARE, SELFPAY ==
[2022-10-11] VITALS (15 sets, daily range): BP systolic 122–164; BP diastolic 58–67; PULSE 56–73; RESP 15–18; TEMP 36.8–37.3; O2SAT 89–95; BMI 22.3
[2022-10-11 11:36] LABS: Absolute Lymphocyte Count 1.11 X10^3/uL (0.83-4.51); Absolute Neutrophil Count 10.1 X10^3/uL (2.0-7.7); Basophil# 0.04 X10^3/uL; Basophil% 0.3 % (0-1); Eosinophil# 0.09 X10^3/uL; Eosinophils% 0.7 % (0-5); Hematocrit 40.2 % (37-47); Hemoglobin 13.5 g/dL (12.0-15.0); Lymphocyte # 1.11 X10^3/ul (0.83-4.51); Lymphocyte % 8.8 % (19-41); Mean Corp Hgb Conc 33.6 g/dL (32-36); Mean Corpuscular Hgb 30.8 pg (27.0-32.0); Mean Corpuscular Volume 91.8 fL (81-99); Mean Platelet Vol. 10.7 fl (6.2-12.0); Monocyte# 1.23 X10^3/uL; Monocyte% 9.7 % (0-10); NRBC Flagged by Analyzer 0 % (0-5); Neutrophil # 10.13 X10^3/uL (2.7-7.7); Neutrophil % 80.3 % (47-70); Platelet Count 229 K/mm3 (150-450); RBC Distribution Width CV 13.7 % (11.6-14.6); RBC Distribution Width SD 46.5 fl (35.1-43.9); Red Blood Count 4.38 M/mm3 (4.2-5.4); White Blood Count 12.6 K/mm3 (4.4-11.0)
[2022-10-11] MEDS: Lactated Ringers 1,000 ML 15 ML IV (11:37)
[2022-10-11 11:59] LABS: Anion Gap 8 (5-15); BUN 12 mg/dL (7-18); BUN/Creat Ratio 15.3 RATIO (10-20); Calcium,Total 8.6 mg/dL (8.5-10.1); Chloride 102 mmol/L (98-107); Creatinine, Serum 0.78 mg/dL (0.55-1.02); EST Glomerular Filtration Rate 74 mL/min (>60); Est Glom Filt Rate - Afr Amer 90 mL/min (>60); Estimated Creatinine Clearance 34.87 ml/min; Glucose 101 mg/dL (74-106); Potassium 3.4 mmol/L (3.5-5.1); Sodium Level 137 mmol/L (136-145)
--- NOTE | 2022-10-11 12:04 | HP.PCM_ITS ---
History and Physical Date of Admission: 10/11/22 [facility] [address] [place] [address] OFFICE VISIT Date of Service:? 10/10/22 MR#: [id number] Acct: [id number] Name:? LEVY LEWIS Rep #: [id number] : 1935 ? ? Provider: ?ANTHONY Redd Age/Sex:? 87/F ? ? Location: [facility] Status: Signed Intake Vital Signs ? 10/06/2318:38 10/10/2308:45 Height 5 ft 4 in 5 ft 4 in Weight: ? 130 lb BMI ? 22.3 Intake Visit Reasons:?RIGHT WRIST Is patient in pain?: Yes Pain scale (1-10): 5 Allergies Penicillins Allergy (Verified 10/10/22 11:21) Hivesibuprofen Adverse Reaction (Verified 10/10/22 11:21) Other Medications alendronate 70 mg tablet 70 mg PO QWEEK 01/24/22 [History Confirmed 10/10/22] calcium carbonate 600 mg-vitamin D3 5 mcg (200 unit) tablet 1 tab PO BID 01/24/22 [History Confirmed 10/10/22] cholecalciferol (vitamin D3) 50 mcg (2,000 unit) capsule (Vitamin D3) 125 mcg PO QODAY 01/24/22 [History Confirmed 10/10/22] levothyroxine 88 mcg tablet 88 mcg PO DAILY 01/24/22 [History Confirmed 10/10/22] simvastatin 40 mg tablet 40 mg PO QHS 01/24/22 [History Confirmed 10/10/22] aspirin 325 mg tablet 325 mg PO DAILY 10/06/22 [History Confirmed 10/10/22] hydrocodone-acetaminophen 5-325mg 5mg-325mg 1 tab PO Q6H PRN PRN Pain 3 days #10 TABLETS 10/06/22 [Rx Confirmed 10/10/22] hydrocodone-acetaminophen 5-325mg 5mg-325mg 1 - 2 tab PO Q6H PRN PRN Pain 5 days #40 TABLETS 10/10/22 [Rx Confirmed 10/10/22] PFSH Medical History?(Updated 10/10/22 @ 11:48 by Amadou Carrera) Back pain Dementia Dizziness Elevated blood pressure reading Erythrocytosis Gastric reflux GERD (gastroesophageal reflux disease) History of echocardiogram Hx of cataract Hyperlipidemia Hypothyroid Indwelling urethral catheter present Kidney disease Migraines Non-smoker Osteoporosis Sleep apnea Wears glasses Wears hearing aid Surgical History?(Updated 10/10/22 @ 11:43 by Amadou Carrera) Hx of tonsillectomy Hx of umbilical hernia repair Family History?(Updated 01/24/22 @ 18:[address] Gayathri Christiansen, DO) Other Heart disease Hypertension Social History? household members:? spouse Smoking Status:? Never smoker alcohol intake:? never substance use type:? does not use additional social history:? Lives with , currently in process of downsizing/moving to independent living with him.? Ambulates independently at baseline. HPI RIGHT WRIST Details: Parts of this documentation were recorded by a scribe, this documentation accurately reflects the service provided and the decisions made by me, ANTHONY Faustin 10/10/22 0936. LEVY LEWIS is a 87 year old F NEW patient here today for right wrist fractures, follow up from ED visit. DOI: 10/06/22. PRABHJOT: Fell onto an outstretched hand while ambulating in a parking lot and had immediate pain in multiple areas including her face, right wrist and bilateral knees. Today her main complainants are her right wrist and bilateral ribs. She presents in a fabricated splint made by the ED. However, she has removed the splint twice during the night due to discomfort. She has dementia mildly and her daughter thinks that this contributed to why she removed the splint. Her and her were independent until last week when he had a DC and is currently in at [facility] for rehab. The patient's children are taking turns staying with her at night and most of the daytime. The patient's daughter presents with her today and gives most of the history. The patient is right hand dominant. Denies prior injury or surgery to right upper extremity. Does take 325mg of aspirin daily. Patient denies any numbness or tingling. Patient is taking [place] for pain. Pain today 09/19. She is unable to take NSAIDs due to kidney issues. ROS Const Denies chills and Denies fever(s) Card Denies dyspnea Resp Denies dyspnea GI Denies nausea and Denies vomiting Musc Reports arthralgias, Reports joint swelling, Reports limited range of motion (fracture and splinted), Denies numbness, Denies radiating pain into limb and Denies tingling Skin/Breast Denies rash Neuro No numbness and No tingling Ortho Exam General General: Yes no acute distress Neurologic: Yes alert Psychologic: Yes reasonable and appropriate Right Wrist/Hand Date of injury: 10/06/22 Skin/Wound: Yes CDI, Yes Swelling, Yes Ecchymosis, Yes nail intact (middle finger abnormal) and Yes capillary refill normal Right Wrist: Yes TTP Fracture site; No ROM-Extension 0-60, ROM-Flexion 0-80, ROM-Pronation 0-80 or ROM-Supination 0-90 Sensation: Radial: I, Ulnar: I and Median: I WRIST: Patient presents in a fabricated splint from the ED. Upon removal of the splint she has no evident open wounds. No signs of infection. Positive wrinkle sign. She does have diffuse swelling and ecchymosis throughout the right hand, wrist and forearm. Evident deformity is noted from the fracture site. Unable to make a fist, but does have some flexion of her fingers. Intact sensation to light touch throughout right upper extremity. Normal capillary refill. Palpable radial pulse. Neurologically intact right upper extremity. Abnormality noted of the middle finger on right hand from past injury, almost entire nail is gone and most distal portion of the finger is missing. Left Wrist/Hand Skin/Wound: Yes Swelling and Yes Ecchymosis Head: Normocephalic Atraumatic Chest: symmetrical rise, non-labored breathing, no audible wheeze Abdomen: no guarding, non-rigid Coding Level of Care Code Off vis,new,level 4 Diagnoses Closed fracture of right distal radius and ulna? S52.501A; S52.601A Assessment and Plan Assessment and Plan (1) Closed fracture of right distal radius and ulna: ?Status:?Acute ?Plan: Patient presents to the office today as a follow from the ED regarding right wrist fractures. DOI: 10/06/22. PRABHJOT: ground level fall. Reviewed ED documentation and 3 view x-rays of the right wrist that were taken. Patient is accompanied today by her daughter, Bernice. Case was discussed with Dr. Perez and he examined the patient with myself and discussed treatment options moving forward including conservative versus surgical options. Conservative options include casting which could decrease her function and she was independent with her before this. Discussed the risks and benefits of surgical intervention including but not limited to blood loss, blood clot, infection, continued pain, neurovascular injuries, failure of the procedure, loss of limb, loss of life and post- operative stiffness. The patient and her daughter would like to proceed surgically to maximize her function post-op. She is scheduled for surgery tomorrow 10/11/22 for an ORIF of the right distal radius. She did not sign consent today in the office and will need to sign tomorrow before the procedure. She is aware she should work on decreasing swelling. She should do this by resting, elevating, icing and moving her fingers. She should remain in the splint and it was re-applied before she left. She is aware what to expect post-operatively including restrictions regarding lifting, pushing, pulling and use of the right hand. She is aware she will be in OT post-operatively. She only had 1 pill left of pain medication. A refill was sent in for her today. She is aware she should not take aspirin/NSAIDs tomorrow. X-rays of the ribs were taken and reviewed with the patient and her daughter. She should follow up 2 weeks post-op or sooner if pain, swelling, numbness or other signs or symptoms. The patient and her daughter are in agreement with the plan. Their questions were answered.? Orders: Orders Ribs Álvaro Min 4V w/PA Chest 10/10/22 R07.81 - Pleurodynia ? Medications: Changed From hydrocodone-acetaminophen 5-325 mg 1 TAB? PO Q6H PRN 3 days PRN 10 TABLETS 0RF Pain S52.501A - Unspecified fracture of the lower end of right radius, initial encounter for closed fracture ? To hydrocodone-acetaminophen 5-325 mg 1 - 2 tabs (1 - 2 x 5-325 mg) PO Q6H PRN 5 days PRN 40 TABLETS 0RF Pain S52.501A - Unspecified fracture of the lower end of right radius, initial encounter for closed fracture ? 10/10/22 1607 <Electronically signed by Crystal CRUZ> Date Crystal CRUZ 10/11/22712<Electronically signed by Ramone Perez DO> Cosigner Signature: Date (if applicable) Ramone Perez have examined the patient and the H&P has been reviewed. There are no clinical changes since date of exam.
[2022-10-11] MEDS: Cefazolin 2 GM in 0.9% Normal Saline 100 ML IV (12:23)
--- NOTE | 2022-10-11 12:25 | RAD_ITS ---
STUDY: X-RAY - RIGHT WRIST REASON FOR EXAM: Female, 87 years old. Fracture. TECHNIQUE: 2 intraoperative view(s) of the wrist were obtained. COMPARISON: Right wrist, October 07, 2022 FINDINGS: The 2 provided interoperative images demonstrate plate and screw along the volar aspect of the distal radius. The distal radial fracture is in grossly normal alignment. Cyst stable fracture of the distal ulna. Remainder of the findings are unchanged. RAD/Wrist 2 Views IMPRESSION: Images of internal fixation of a distal radial fracture in the OR. Electronically Signed: Jake Treviño DO at 18:28 EDT ,
[2022-10-11] MEDS: Lidocaine 2% /Epi 1:100 (20ml) 20 ML VIAL (13:30)
--- NOTE | 2022-10-11 13:44 | OP.PCM_ITS ---
Operative Report Date of Procedure: 10/11/22 Preoperative diagnosis: [Right distal radius fracture intra-articular displaced] Postoperative diagnosis: [Same] Procedure: ORIF of the distal radius Implants: Synthes distal radius variable angle locking plate Tourniquet time: 56 minutes Complications: [None] Indication for procedure: 87-year-old female who had a fall who sustained a displaced intra-articular distal radius fracture that was reduced in the ER and splinted. We discussed risks benefits and alternatives of conservative versus surgical intervention. Including the risk of bleeding infection nerve artery tissue damage need for further surgery continued pain postoperative stiffness need for postoperative physical therapy and the expected postoperative course. Procedure: The patient was met in the preoperative holding area the operative extremity was identified by both patient and physician and marked. Patient was met by anesthesia she was brought back to the operating room on a wheeled cart and transferred to the operating table in the supine position anesthesia was started. A well-padded tourniquet was placed on the upper arm of the operative extremity. She was prepped and draped in the usual sterile fashion. A Time out was called to ensure the proper patient procedure and extremity were being contemplated. A 15 blade scalpel was used to make a linear incision over the FCR tendon this was carried down through the skin and subcutaneous tissue. Electrocautery was used to maintain hemostasis. Barbara retractors were used. The FCR tendon sheath was incised and the FCR tendon was mobilized radially. A deep blade scalpel was used to perforate the fascia of the deep FCR tendon sheath and Littler scissors were used to dissect proximally and distally. Blunt dissection was performed a johnathan was placed on the radial and ulnar side of the radius. The pronator quadratus was partially torn from the injury and was released off the radial border of the radius with electrocautery and was elevated with a aguilar elevator. The Hohmann retractors were then placed deep to this muscle. The fracture site was visualized and was freed of hematoma and clot debris with the use of small rongeur and [place]. The fracture was then reduced with the use of a [place] and ulnar deviation and wrist flexion. This was checked under fluoroscopy to ensure that an adequate reduction could be performed. A plate was then positioned over the fracture site and temporarily fixed to the bone with K wires. A cortical screw was then placed in the shaft and sequential locking screws were placed distally this was checked on both AP and lateral projections to ensure screw placement was not penetrating the joint and was in the proper location. Bone drill sleeve was used for the radial styloid screw and a variable angle fashion. The remainder of the cortical screws were placed in the shaft. And the fracture and hardware were visualized in both AP and lateral projections in good alignment and fracture positioning. The wound was thoroughly irrigated. Pronator quadratus was not repairable. A subcutaneous stitch with 3-0 Vicryl was performed followed by 4-0 nylon vertical mattress stitches. Followed by Xeroform 4 x 4 ABD web roll stockinette more web roll and an Jimmie wrap. The tourniquet was let down. There was no complications intraoperatively and the patient was brought back to the PACU in stable condition where she received an axillary block. All counts were correct.
--- NOTE | 2022-10-11 13:45 | DCINST_ITS ---
Discharge Instructions Diet Discharge Diet: No restrictions Dressing / Incision Call your doctor if you observe: Shortness of breath and Chest pain Additional Dressing/Incision Instructions:: DO NOT remove splint. Keep splint on clean and dry do not get wet. encourage full finger range of motion immediately. Absolutely no lifting pushing or pulling any weight with operative extremity. Keep elevated above heart over the next week. Keep cool. Do not stick anything inside of splint. Avoiding sweating will help with itch. If itchy may use [id number] Benadryl. Follow-up as directed call with any concerns. Follow Up Care Please Follow Up With: Ramone Perez DO When: 2 weeks or sooner if patient removes splint accidentally. Test Results: Test results from this visit will be discussed in further detail at your follow- up appointment, if applicable. Discharge Plan Admission Primary Reason for Your Visit: Right distal radius ORIF Attending Provider: Ramone Perez Primary Care Provider: Geovanna Dominguez Discharge Orders/Prescriptions Prescriptions: Continued hydrocodone-acetaminophen 5-325 mg tablet 1 - 2 tab PO Q6H PRN PRN (Reason: Pain) 5 Days Qty: 40 0RF cholecalciferol (vitamin D3) [Vitamin D3] 50 mcg (2,000 unit) Capsule 125 mcg PO QODAY alendronate 70 mg tablet 70 mg PO QWEEK Label Comments: take 1 tablet by mouth every week calcium carbonate-vitamin D3 600 mg-5 mcg (200 unit) Tablet 1 tab PO BID simvastatin 40 mg tablet 40 mg PO QHS Label Comments: take 1 tablet by mouth once daily levothyroxine 88 mcg tablet 88 mcg PO DAILY Label Comments: take 1 tablet by mouth once daily aspirin 325 mg Tablet 325 mg PO DAILY hydrocodone-acetaminophen 5-325 mg tablet 1 tab PO Q6H PRN PRN (Reason: Pain) 3 Days Qty: 10 0RF Referrals / Follow Up: Geovanna Dominguez, CHASIDY-C [Primary Care Provider] - Disposition Discharge Orders: Discharge Patient (Routine); Ordered 10/11/22 Ordered By: Dr. Ramone Perez
[2022-10-11] MEDS: Lactated Ringers 1,000 ML 125 ML IV (13:52)
== END 2022-10-11 17:10 | disposition home or self-care (01) ==
LOC: SDC 11:00 → AC 11:02
PROVIDERS: Anesthesiology; PCP Nurse Practitioner Family; Referring Provider Orthopaedic Surgery; Visit Provider Orthopaedic Surgery
PROC: (CPT 25608; principal; 2022-10-11 12:25)
DX: S52.571A Other intraarticular fracture of lower end of right radius, initial encounter for closed fracture (principal); W19.XXXA Unspecified fall, initial encounter; Y92.481 Parking lot as the place of occurrence of the external cause; E78.5 Hyperlipidemia, unspecified; E03.9 Hypothyroidism, unspecified; K21.9 Gastro-esophageal reflux disease without esophagitis; Z79.82 Long term (current) use of aspirin; Z79.890 Hormone replacement therapy; Z79.899 Other long term (current) drug therapy
CPT/HCPCS: 25608; 64417; 73100; 76000; 80048; 85025; C1713; J7120; J2405

== ENCOUNTER 2022-11-04 10:08 | Emergency (ER) | payer MEDICARE, SELFPAY ==
[2022-11-04 10:08] VITALS: BP 149/68; PULSE 53; RESP 14; TEMP 36.2; O2SAT 96; BMI 23.1
[2022-11-04 10:22] VITALS: BP 182/70; PULSE 58; RESP 18; O2SAT 94
--- NOTE | 2022-11-04 10:41 | EKG12_ITS ---
Test Reason : DIZZINESS Blood Pressure : / mmHG Vent. Rate : 059 BPM Atrial Rate : 059 BPM P-R Int : 150 ms QRS Dur : 080 ms QT Int : 454 ms P-R-T Axes : 040 -26 -03 degrees QTc Int : 449 ms Sinus bradycardia Minimal voltage criteria for LVH, may be normal variant ( R in aVL ) Borderline ECG Confirmed by YADIRA DE DIOS, EFRAÍN ([id number]), editor managing newspaper MATHEW VU ([id number]) on 11/08/2022 10:10:43 AM Referred By: Confirmed By:EFRAÍN MAY MD
--- NOTE | 2022-11-04 10:43 | EX.ED.DYSGE1 ---
HPI History of Present Illness Chief Complaint: Dizziness Narrative Narrative: 87-year-old female who denies significant past medical history presents with dizziness, nausea and vomiting that began suddenly just prior to arrival. She and her states that they were on their way to the title agency, running errands, and when they were driving in the car, she became dizzy, and started vomiting. She states that the dizziness did not last very long and may have essentially resolved, but she has vomited multiple times without any blood in her emesis. She denies any chest pain or shortness of breath, no headache, she does not take blood thinners. While she denies that this is never happened to her previously, her problem list does include intermittent vertigo in review. She remains nauseated. [facility] Medical History Back pain Dementia Dizziness Elevated blood pressure reading Erythrocytosis Gastric reflux GERD (gastroesophageal reflux disease) History of echocardiogram Hx of cataract Hyperlipidemia Hypothyroid Indwelling urethral catheter present Kidney disease Migraines Non-smoker Osteoporosis Sleep apnea Wears glasses Wears hearing aid Home Medications alendronate 70 mg tablet 70 mg PO QWEEK 01/24/22 [History Last Taken 01/23/22] calcium carbonate 600 mg-vitamin D3 5 mcg (200 unit) tablet 1 tab PO BID 01/24/22 [History Last Taken 01/24/22 10:00] cholecalciferol (vitamin D3) 50 mcg (2,000 unit) capsule (Vitamin D3) 125 mcg PO QODAY 01/24/22 [History Last Taken 01/23/22 22:00] levothyroxine 88 mcg tablet 88 mcg PO DAILY 01/24/22 [History Last Taken 01/24/22 08:00] simvastatin 40 mg tablet 40 mg PO QHS 01/24/22 [History Last Taken 01/23/22 22:00] aspirin 325 mg tablet 325 mg PO DAILY 10/06/22 [History Last Taken 10/09/22] hydrocodone-acetaminophen 5-325mg 5mg-325mg 1 tab PO Q6H PRN PRN Pain 3 days #10 TABLETS 10/06/22 [Rx Last Taken Unknown] Allergy/AdvReac Type Severity Reaction Status Date / Time Penicillins Allergy Hives Verified 11/04/22 10:09 ibuprofen AdvReac Other Verified 11/04/22 10:09 Family History Other Heart disease Hypertension Surgical History Hx of tonsillectomy Hx of umbilical hernia repair Social History household members: spouse Smoking Status: Never smoker alcohol intake: never substance use type: does not use additional social history: Lives with , currently in process of downsizing/moving to independent living with him. Ambulates independently at baseline. ROS ROS ED ROS Narrative Constitutional: No fever, no chills. HEENT: No sore throat. No neck pain. No loss of vision. No rhinorrhea. Cardiovascular: No chest pain. No palpitations. No pedal edema. Respiratory: No cough, no shortness of breath. Abdominal: No abdominal pain. Positive nausea and vomiting. Genitourinary: No dysuria. No hematuria. Musculoskeletal: No myalgias. No arthralgias. Neurologic: No headaches. No dizziness. No lightheadedness. Skin: No rash. No change in color. Psychiatric: No depression. No anxiety. EXAM Physical Exam Const Vital Signs: 11/04/22 10:08 11/04/22 10:22 11/04/22 10:23 Temperature 97.1 F L Temperature Source Temporal Pulse Rate 53 L 58 L Respiratory Rate 14 18 Respiratory Effort Normal Non-Labored Respiratory Pattern Normal Blood Pressure 149/68 H 182/70 H Blood Pressure Mean 95 107 Pulse Ox 96 94 Oxygen Delivery Method Room Air Room Air 11/04/22 11:20 11/04/22 13:00 11/04/22 14:18 Temperature Temperature Source Pulse Rate 56 L Respiratory Rate 18 Respiratory Effort Respiratory Pattern Blood Pressure 157/75 H 140/75 H 150/76 H Blood Pressure Mean 102 96 Pulse Ox 95 Oxygen Delivery Method Room Air MDM MDM MDM Narrative Medical decision making narrative: EKG was obtained and interpreted by myself as normal sinus rhythm/sinus bradycardia at 59 bpm without ectopy or acute ST changes. No STEMI. I reviewed her laboratory work and she has normal white count of 10.8, hemoglobin normal at 14.7, hematocrit 47.5, normal platelet count of 261. CMP reveals creatinine of 1.08 with a normal BUN of 18, glucose elevated appropriately at 139 but she has a normal anion gap of 10 I do not feel that she is in a diabetic ketoacidosis. Initial high-sensitivity troponin is 8 with a repeat being 10 for a delta less than 7. I reviewed her prior records and she had been admitted for vertigo in the past. Her daughter is at the bedside who states that they wanted to do an MRI for her dizziness in the past but insurance would not pay for it. Her symptoms had spontaneously resolved at that time. I did obtain a CT of the brain today, and reviewed the imaging and the radiology report which was interpreted as no evidence of an acute process, chronic involutional Manny changes. She did receive ondansetron and her nausea and vomiting has ceased. She is not currently dizzy, hence I do not feel that meclizine is indicated. Chest x-ray interpreted by myself shows no evidence of acute process, no pneumonia. I reviewed the radiology report which confirms my independent interpretation, and they comment on decreasing pleural effusions. At this point in time, as she is asymptomatic and her nausea and vomiting has ceased, I feel she can be discharged safely home with follow-up to her primary care provider. This does not seem like TIA type symptoms which would require admission. Through shared decision-making, patient is comfortable with discharge. She was able to ambulate in the ED without difficulty. Return instructions were reviewed. Disposition is discharged home in stable condition. History & Record Review Discussion w/independent historian: Patient and Significant other Additional record(s) reviewed:: Prior ED visit Lab Data Attestation: I reviewed the patient's lab results. Labs: Laboratory Results - last 24 hr 11/04/22 11/04/22 11/04/22 10:50 10:50 12:55 WBC 10.8 RBC 4.93 Hgb 14.7 Hct 47.5 H MCV 96.3 MCH 29.8 MCHC 30.9 L RDW Std Deviation 52.8 H RDW Coeff of Ambrose 15.0 H Plt Count 261 MPV 11.2 Immature Gran % (Auto) 0.400 Neut % (Auto) 54.2 Lymph % (Auto) 33.8 Villalba % (Auto) 9.2 Eos % (Auto) 1.8 Baso % (Auto) 0.6 Absolute Neuts (auto) 5.9 Absolute Lymphs (auto) 3.66 Nucleated RBC % 0 Sodium 140 Potassium 3.7 Chloride 105 Carbon Dioxide 25.0 Anion Gap 10 BUN 18 Creatinine 1.08 H Estim Creat Clear Calc 32.29 Est GFR (MDRD) Af Amer 62 Est GFR (MDRD) Non-Af 51 L BUN/Creatinine Ratio 16.7 Glucose 139 H Calcium 9.2 Total Bilirubin 0.50 AST 18 ALT 12 L Alkaline Phosphatase 148 H Troponin I High Sens 8 10 Total Protein 6.9 Albumin 3.3 Globulin 3.6 Albumin/Globulin Ratio 0.9 Radiography Diagnostic Testing: Clinical Impression(s) from Imaging Studies Chest X-Ray 11/04/22 10:45 IMPRESSION: Decreased bibasilar atelectasis or inflammation. Decreased right pleural effusion. Electronically Signed: Paula Razo MD at 11:11 EDT , Brain CT 11/04/22 11:09 IMPRESSION: No acute intracranial process identified. Chronic involutional and white matter changes. Electronically Signed: Paula Razo MD at 11:36 EDT , Discharge Plan Triage Chief Complaint: Dizziness ED Provider: Wilber Walker Dx/Rx/DC Orders Clinical Impression: Intermittent vertigo, Nausea and vomiting Instructions: ED Vertigo, Unspecified, ED Vomiting (Adult) Prescriptions: No Action cholecalciferol (vitamin D3) [Vitamin D3] 50 mcg (2,000 unit) Capsule 125 mcg PO QODAY alendronate 70 mg tablet 70 mg PO QWEEK Label Comments: take 1 tablet by mouth every week calcium carbonate-vitamin D3 600 mg-5 mcg (200 unit) Tablet 1 tab PO BID simvastatin 40 mg tablet 40 mg PO QHS Label Comments: take 1 tablet by mouth once daily levothyroxine 88 mcg tablet 88 mcg PO DAILY Label Comments: take 1 tablet by mouth once daily aspirin 325 mg Tablet 325 mg PO DAILY hydrocodone-acetaminophen 5-325 mg tablet 1 tab PO Q6H PRN PRN (Reason: Pain) 3 Days Qty: 10 0RF Primary Care Provider: Geovanna Dominguez Referrals: Geovanna Dominguez, SPEECH AND LANGUAGE ASSISTANT-C [Primary Care Provider] - 3-5 Days Disposition Disposition: Home, Self Care Discharge Date/Time: 11/04/22 14:18
--- NOTE | 2022-11-04 10:45 | RAD_ITS ---
HISTORY: chest pain. TECHNIQUE: XR Chest 1 View. COMPARISON: 10/10/2022. FINDINGS: CARDIOMEDIASTINAL BORDERS: Unchanged with mild cardiomegaly and calcified AP window lymph node. LUNGS: Calcified granuloma in the left lateral lung. Mild atelectasis and scarring. PLEURA: No pleural effusion or pneumothorax seen. OSSEOUS STRUCTURES: Mild scoliosis with degenerative change. RAD/Chest 1 View (Portable) IMPRESSION: Decreased bibasilar atelectasis or inflammation. Decreased right pleural effusion. Electronically Signed: Paula Razo MD at 11:11 EDT ,
[2022-11-04] MEDS: 0.9% Normal Saline 1,000 ML 1000 ML IV (10:50)
[2022-11-04] MEDS: Ondansetron 4 MG/2 ML Vial IV (10:52)
[2022-11-04 10:58] LABS: Absolute Lymphocyte Count 3.66 X10^3/uL (0.83-4.51); Absolute Neutrophil Count 5.9 X10^3/uL (2.0-7.7); Basophil# 0.06 X10^3/uL; Basophil% 0.6 % (0-1); Eosinophils% 1.8 % (0-5); Hematocrit 47.5 % (37-47); Hemoglobin 14.7 g/dL (12.0-15.0); Lymphocyte # 3.66 X10^3/ul (0.83-4.51); Lymphocyte % 33.8 % (19-41); Mean Corp Hgb Conc 30.9 g/dL (32-36); Mean Corpuscular Hgb 29.8 pg (27.0-32.0); Mean Corpuscular Volume 96.3 fL (81-99); Mean Platelet Vol. 11.2 fl (6.2-12.0); Monocyte% 9.2 % (0-10); NRBC Flagged by Analyzer 0 % (0-5); Neutrophil # 5.88 X10^3/uL (2.7-7.7); Neutrophil % 54.2 % (47-70); Platelet Count 261 K/mm3 (150-450); RBC Distribution Width SD 52.8 fl (35.1-43.9); Red Blood Count 4.93 M/mm3 (4.2-5.4); White Blood Count 10.8 K/mm3 (4.4-11.0)
--- NOTE | 2022-11-04 11:09 | CT_ITS ---
HISTORY: dizziness. TECHNIQUE: Multiple axial images were obtained of the head without intravenous contrast. A radiation dose optimization technique was used for this scan. 243 images. COMPARISON: 01/24/2022. FINDINGS: BRAIN PARENCHYMA: Multiple foci and zones of low attenuation in the bilateral cerebral white matter compatible with chronic small vessel ischemic gliosis. No acute intra-axial hemorrhage identified. CSF SPACES: Generalized volume loss. No midline shift or other significant mass effect. No acute extra-axial hemorrhage seen. OTHER: Intact calvarium. No significant air fluid levels in the paranasal sinuses or mastoid air cells. Bilateral lens resections. CT/Brain/Head without Contrast IMPRESSION: No acute intracranial process identified. Chronic involutional and white matter changes. Electronically Signed: Paula Razo MD at 11:36 EDT ,
[2022-11-04 11:20] VITALS: BP 157/75
[2022-11-04 11:20] LABS: ALB/GLOB Ratio 0.9 RATIO (0.9-2.4); AST(SGOT) 18 U/L (15-37); Alanine Aminotransfer ALT/SGPT 12 U/L (13-56); Albumin, Serum 3.3 g/dL (3.2-5.0); Alkaline Phosphatase 148 U/L (45-117); Anion Gap 10 (5-15); BUN 18 mg/dL (7-18); BUN/Creat Ratio 16.7 RATIO (10-20); Calcium,Total 9.2 mg/dL (8.5-10.1); Chloride 105 mmol/L (98-107); Creatinine, Serum 1.08 mg/dL (0.55-1.02); EST Glomerular Filtration Rate 51 mL/min (>60); Est Glom Filt Rate - Afr Amer 62 mL/min (>60); Estimated Creatinine Clearance 32.29 ml/min; Globulin 3.6 g/dL (2.2-4.2); Glucose 139 mg/dL (74-106); Potassium 3.7 mmol/L (3.5-5.1); Protein, Total 6.9 g/dL (6.4-8.2); Sodium Level 140 mmol/L (136-145); Troponin-I HS (w/2H Reflex) 8 pg/mL (3.0-54.0)
[2022-11-04 12:52] LABS: Reflex Troponin-HS? (from REC) Y
[2022-11-04 13:00] VITALS: BP 140/75; PULSE 56; RESP 18; O2SAT 95
[2022-11-04 13:22] LABS: Troponin-I HS 10 pg/mL (3.0-54.0)
[2022-11-04 14:18] VITALS: BP 150/76
== END 2022-11-04 14:18 | disposition home or self-care (01) ==
PROVIDERS: Emergency Provider Emergency Medicine; PCP Nurse Practitioner Family; Visit Provider Emergency Medicine
DX: R42 Dizziness and giddiness (principal); R11.2 Nausea with vomiting, unspecified; E78.5 Hyperlipidemia, unspecified
CPT/HCPCS: 70450; 71045; 80053; 84484; 85025; 93005; 96374; 99284; J7030; A4216; J2405

== ENCOUNTER → 2023-12-27 | Outpatient (CLI) | payer MEDICARE, SELFPAY ==
--- NOTE | 2023-12-27 12:30 | BD_ITS ---
STUDY: DUAL ENERGY X-RAY ABSORPTIOMETRY / DXA REASON FOR EXAM: Female, 88 years old. 733.00OsteoporosisBONE DENSITY REASON FOR EXAM TECHNIQUE: Bone Mineral Density (BMD) measurements of lumbar spine and bilateral hips were obtained. COMPARISON: Comparison is made with prior study dated December 23, 2021 and November 12, 2019. FINDINGS: Lumbar Spine (L1-L4): g/cm2 (0.692) / T-score (-2.6) / Z-score (0.1) Findings are suggestive of osteoporosis with a high fracture risk. Left Femur Total: g/cm2 (0.551) / T-score (-3.2) / Z-score (-0.9) Left Femoral Neck: g/cm2 (0.457) / T-score (-3.5) / Z-score (-1.0) Right Femur Total: g/cm2 (0.320) / T-score (-5.1) / Z-score (-2.8) Right Femoral Neck: g/cm2 (0.279) / T-score (-5.1) / Z-score (-2.6) The T-Scores on the most recent prior examination were: Lumbar Spine (L1-L4): There has been worsening of bone density since the previous examination. Left Femur Total: which represents a worsening of 0.2%. Right Femur Total: which represents a worsening of 39.4%. BD/Dexa Bone Density Study IMPRESSION: The patient is considered osteoporotic as outlined below according to World Don Organization (WHO) criteria with a high fracture risk. There has been worsening of bone density since the previous examination. Reference Information: The T-score is the number of standard deviations above or below the standard which is normal for young adults at their peak bone mineral density. The World Health Organization (WHO) interprets the T-scores as follows: Above -1 Normal bone density Between -1 and -2.5 Osteopenia Equal to / or below -2.5 Osteoporosis As a practical clinical guideline, osteopenia may be graded as follows: Mild -1 through -1.5 Moderate -1.6 through -2.0 Severe -2.1 through -2.4 The Z-score is the number of standard deviations above or below age-matched controls. A Z-score of less than -1.5 would be considered abnormal. References: 1. NIH Osteoporosis and Related Bone Diseases www osteo.org 2. International Society for Clinical Densitometry www iscd.org 3. National Osteoporosis Foundation www nof.org Electronically Signed: Fernando Venegas MD at 8:18 EDT ,
== END | disposition home or self-care (01) ==
LOC: OPBD 12:30
PROVIDERS: PCP Nurse Practitioner Family; Referring Provider Nurse Practitioner Family; Visit Provider Nurse Practitioner Family
DX: M81.0 Age-related osteoporosis without current pathological fracture (principal)
CPT/HCPCS: 77080

== ENCOUNTER 2024-03-07 13:01 | Outpatient (CLI) | payer MEDICARE, SELFPAY ==
[2024-03-07] MEDS: Romosozumab-AQQG 210 MG/2.34 ML Syringe SC (13:12)
[2024-03-07 13:18] VITALS: BP 132/59; PULSE 60; RESP 16; TEMP 36.3; O2SAT 96
== END 2024-03-07 23:59 | disposition home or self-care (01) ==
LOC: MEDOUTP 13:01
PROVIDERS: PCP Nurse Practitioner Family; Referring Provider Nurse Practitioner Family; Visit Provider Nurse Practitioner Family
DX: M81.0 Age-related osteoporosis without current pathological fracture (principal)
CPT/HCPCS: 96372; J3111

== ENCOUNTER 2024-04-02 11:00 | Outpatient (CLI) | payer MEDICARE, SELFPAY ==
[2024-04-02 11:13] VITALS: BP 150/52; PULSE 57; RESP 16; TEMP 36.7; O2SAT 100; BMI 24.0
--- OUTSIDE RECORDS SUMMARY | 2024-04-02 11:15 | XMS RPT_ITS | CCD ---
Author Organization [facility] Inform ion [facility] Care Team Providers Care Learning Solutions Specialist Name Role Phone Ramilaeleanor Beverley Referring Unavailable Geovanna Dominguez CNP Attending Unavailable Geovanna Dominguez CNP Consulting Unavailable Encounters Encounter Date Encounter Type Care Provider Facility Start: 10-17-2022 ambulatory Beverley Bridges Kate [facility] Payers Date Payer Category Payer Medicare [id number] 2020 Unknown [id number] 2016 Unknown [id number] 2014 Medicare [id number] 2013 Medicare [id number] 2010 Unknown [id number] 2004 Unknown [id number] 1936 Unknown [id number] Medicare [id number] B Medicare [id number] Summary Purpose Family History No Family History Records Found Advance Directives No Advanced Directives Records Found Additional Source Comments INFORMATION SOURCE (unrecogn ized section and content) DATE CREATED AUTHOR 10/18/2022 Comprehensive In [facility] FOR RECORDS PERTAINING TO PATIENTS WHO ARE OR HAVE BEEN ENROLLED IN A CHEMICAL DEPENDENCY/SUBSTANCEABUSE PROGRAM, SOME INFORMATION MAY BE OMITTED. This clinical summary was aggregated from multiple sources. Caution should be exercised in using it in the provision of clinical care. This summary normalizes information from multiple sources, and as a consequence, information in this document may materially change the coding, format and clinical context of patient data. In addition, data may be omitted in some cases. CLINICAL DECISIONS SHOULD BE BASED ON THE PRIMARY CLINICAL RECORDS. [facility] [employer] ([email or web address] [facility]. provides no warranty or guarantee of the accuracy or completeness of information in this document.
[2024-04-02] MEDS: Romosozumab-AQQG 210 MG/2.34 ML Syringe SC (11:16)
== END 2024-04-02 23:59 | disposition home or self-care (01) ==
LOC: MEDOUTP 11:00
PROVIDERS: PCP Nurse Practitioner Family; Referring Provider Nurse Practitioner Family; Visit Provider Nurse Practitioner Family
DX: M81.0 Age-related osteoporosis without current pathological fracture (principal)
CPT/HCPCS: 96372; J3111

== ENCOUNTER 2024-05-02 12:25 | Outpatient (CLI) | payer MEDICARE, SELFPAY ==
[2024-05-02 12:34] VITALS: BP 154/49; PULSE 54; RESP 16; TEMP 36.4; O2SAT 98
[2024-05-02] MEDS: Romosozumab-AQQG 210 MG/2.34 ML Syringe SC (12:37)
== END 2024-05-02 23:59 | disposition home or self-care (01) ==
LOC: MEDOUTP 12:25
PROVIDERS: PCP Nurse Practitioner Family; Referring Provider Nurse Practitioner Family; Visit Provider Nurse Practitioner Family
DX: M81.0 Age-related osteoporosis without current pathological fracture (principal)
CPT/HCPCS: 96372; J3111

== ENCOUNTER 2024-05-28 10:22 | Outpatient (CLI) | payer MEDICARE, SELFPAY ==
[2024-05-28 10:29] VITALS: BP 155/71; PULSE 52; RESP 16; TEMP 36.2; O2SAT 97; BMI 23.1
[2024-05-28] MEDS: Romosozumab-AQQG 210 MG/2.34 ML Syringe SC (10:54)
== END 2024-05-28 23:59 | disposition home or self-care (01) ==
LOC: MEDOUTP 10:23
PROVIDERS: PCP Nurse Practitioner Family; Referring Provider Nurse Practitioner Family; Visit Provider Nurse Practitioner Family
DX: M81.0 Age-related osteoporosis without current pathological fracture (principal)
CPT/HCPCS: 96372; J3111

== ENCOUNTER 2024-06-25 10:00 | Outpatient (CLI) | payer MEDICARE, SELFPAY ==
[2024-06-25 10:06] VITALS: BP 143/61; PULSE 56; RESP 16; TEMP 36; O2SAT 97; BMI 23.5
[2024-06-25] MEDS: Romosozumab-AQQG 210 MG/2.34 ML Syringe SC (10:10)
== END 2024-06-25 23:59 | disposition home or self-care (01) ==
LOC: MEDOUTP 10:01
PROVIDERS: PCP Nurse Practitioner Family; Referring Provider Nurse Practitioner Family; Visit Provider Nurse Practitioner Family
DX: M81.0 Age-related osteoporosis without current pathological fracture (principal)

== ENCOUNTER 2024-07-23 10:27 | Outpatient (CLI) | payer MEDICARE, SELFPAY ==
[2024-07-23 10:44] VITALS: BP 155/61; PULSE 76; RESP 16; TEMP 36.1; O2SAT 96; BMI 23.5
[2024-07-23] MEDS: Romosozumab-AQQG 210 MG/2.34 ML Syringe SC (10:57)
== END 2024-07-23 23:59 | disposition home or self-care (01) ==
LOC: MEDOUTP 10:28
PROVIDERS: PCP Nurse Practitioner Family; Referring Provider Nurse Practitioner Family; Visit Provider Nurse Practitioner Family
DX: M81.0 Age-related osteoporosis without current pathological fracture (principal)
CPT/HCPCS: 96372; J3111

== ENCOUNTER 2024-08-20 10:11 | Outpatient (CLI) | payer MEDICARE, SELFPAY ==
[2024-08-20 10:31] VITALS: BP 177/81; PULSE 53; RESP 16; TEMP 36.3; O2SAT 100; BMI 23.5
[2024-08-20] MEDS: Romosozumab-AQQG 210 MG/2.34 ML Syringe SC (10:40)
== END 2024-08-20 23:59 | disposition home or self-care (01) ==
LOC: MEDOUTP 10:11
PROVIDERS: PCP Nurse Practitioner Family; Referring Provider Nurse Practitioner Family; Visit Provider Nurse Practitioner Family
DX: M81.0 Age-related osteoporosis without current pathological fracture (principal)
CPT/HCPCS: 96372; J3111

== ENCOUNTER 2024-09-17 10:10 | Outpatient (CLI) | payer MEDICARE, SELFPAY ==
[2024-09-17 10:20] VITALS: BP 163/67; PULSE 51; RESP 16; TEMP 36.4; O2SAT 99
[2024-09-17] MEDS: Romosozumab-AQQG 210 MG/2.34 ML Syringe SC (10:24)
== END 2024-09-17 23:59 | disposition home or self-care (01) ==
LOC: MEDOUTP 10:10
PROVIDERS: PCP Nurse Practitioner Family; Referring Provider Nurse Practitioner Family; Visit Provider Nurse Practitioner Family
DX: M81.0 Age-related osteoporosis without current pathological fracture (principal)
CPT/HCPCS: 96372; J3111

== ENCOUNTER 2024-10-15 10:43 | Outpatient (CLI) | payer MEDICARE, SELFPAY ==
[2024-10-15 10:55] VITALS: BP 149/57; PULSE 52; RESP 16; TEMP 35.7; O2SAT 99; BMI 23.6
[2024-10-15] MEDS: Romosozumab-AQQG 210 MG/2.34 ML Syringe SC (11:12)
== END 2024-10-15 23:59 | disposition home or self-care (01) ==
LOC: MEDOUTP 10:43
PROVIDERS: PCP Nurse Practitioner Family; Referring Provider Nurse Practitioner Family; Visit Provider Nurse Practitioner Family
DX: M81.0 Age-related osteoporosis without current pathological fracture (principal)
CPT/HCPCS: 96372; J3111

== ENCOUNTER 2024-11-12 11:14 | Outpatient (CLI) | payer MEDICARE, SELFPAY ==
[2024-11-12 11:21] VITALS: BP 157/58; PULSE 63; RESP 18; TEMP 35.9; O2SAT 96; BMI 22.3
[2024-11-12] MEDS: Romosozumab-AQQG 210 MG/2.34 ML Syringe SC (11:23)
== END 2024-11-12 23:59 | disposition home or self-care (01) ==
LOC: MEDOUTP 11:15
PROVIDERS: PCP Nurse Practitioner Family; Referring Provider Nurse Practitioner Family; Visit Provider Nurse Practitioner Family
DX: M81.0 Age-related osteoporosis without current pathological fracture (principal)
CPT/HCPCS: 96372; J3111

== ENCOUNTER 2024-12-10 10:42 | Outpatient (CLI) | payer MEDICARE, SELFPAY ==
[2024-12-10 11:12] VITALS: BP 158/60; PULSE 52; RESP 16; TEMP 36.3; O2SAT 95
== END 2024-12-10 23:59 | disposition home or self-care (01) ==
LOC: MEDOUTP 10:42
PROVIDERS: PCP Nurse Practitioner Family; Referring Provider Nurse Practitioner Family; Visit Provider Nurse Practitioner Family
DX: M81.0 Age-related osteoporosis without current pathological fracture (principal)
CPT/HCPCS: 96372; J3111

== ENCOUNTER 2025-01-08 08:20 | Outpatient (CLI) | payer MEDICARE, SELFPAY ==
[2025-01-08 08:29] VITALS: BP 148/61; PULSE 50; RESP 16; TEMP 35.9; O2SAT 97; BMI 23.5
== END 2025-01-08 23:59 | disposition home or self-care (01) ==
LOC: MEDOUTP 08:20
PROVIDERS: PCP Nurse Practitioner Family; Referring Provider Nurse Practitioner Family; Visit Provider Nurse Practitioner Family
DX: M81.0 Age-related osteoporosis without current pathological fracture (principal)
CPT/HCPCS: 96372; J3111